=== PATIENT | female | born 1965 | race Caucasian/White ===

== ENCOUNTER → 2016-05-05 | Outpatient (CLI) | payer OTHER ==
[~2016-05-05] MED LIST: ADVAIR 500-501 EACH INH; ATIVAN1 MG PO; COLACE 100 MG100 MG PO; COLACE100 MG PO; DUCOLAX; DULCOLAX5 MG PO; HYDROCODON-ACE1 EAC1; HYDROCODON-ACE1 EAC5 PO; HYDROCODONE-APA1 TA1 PO; IBUPROFEN 800800 M1 PO; LEVOTHROID175 MCG; LEVOTHYROXINE 0.15MG PO; LITHIUM CARBON300 M3 PO; METHOCARBAMOL500 M2 PO; NEURONTIN 300300 M1 PO; NEXIUM20 M1; NEXIUM40 MG PO; NORCO 5-325 TA1 EACH PO; NYSTATIN 1100000 U/M PO; PERCOCET PO; RISPERDAL 1 MG T1 MG PO; ROBAXIN 750 MG750 M1 PO; TRAMADOL 50 MG50 MG PO; VENTOLIN HFA 1818 GM INH; XOPENEX0.63 MG/3 IH; ZPAK PO
== END ==
LOC: ULTRA 04-30 11:52
DX: D25.9 Leiomyoma of uterus, unspecified (principal); R10.2 Pelvic and perineal pain; R10.9 Unspecified abdominal pain

== ENCOUNTER → 2016-10-12 | Outpatient (CLI) | payer OTHER | LOC: RAD 10:46 | DX: M47.896 Other spondylosis, lumbar region (principal); M17.12 Unilateral primary osteoarthritis, left knee; M25.552 Pain in left hip ==

== ENCOUNTER 2016-10-18 16:07 | Inpatient (IN) | payer OTHER ==
[2016-10-18] VITALS (9 sets, daily range): BP systolic 140–159; BP diastolic 86–125
[~2016-10-18] VITALS: Ht 177.8 cm; Wt 114.9 kg
--- NOTE | ~2016-10-18 | EKG ---
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: ERA : 1965 Requested By: Sara Pena Order Number: [id number] MD: Chemo Morgan Measurements Intervals [place] Rate: 63 P: 45 NM: 294 QRS: 11 QRSD: 151 T: -4 QT: 427 QTc: 438 Interpretive Statements Second degree AV block, Mobitz I Incomplete right bundle branch block Compared to ECG 07/03/2012 10:14:41 Second-degree AV block, Mobitz type I (Wenckebach) now present Electronically Signed On 10-19-2016 8:51:23 CDT by Chemo Morgan [email or web address] <ELECTRONICALLY SIGNED> By: Chemo Morgan MD, [facility] 10/19/16 0851 1654 1654 Chemo Morgan MD, [facility] /EPI
--- NOTE | ~2016-10-18 | EKG ---
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 : 1965 Requested By: Román Boyle Order Number: [id number] MD: Khoi Madrigal Measurements Intervals [place] Rate: 72 P: 33 CO: 204 QRS: -6 QRSD: 110 T: 25 QT: 392 QTc: 430 Interpretive Statements Sinus rhythm Borderline prolonged CO interval Abnormal R-wave progression, early transition Borderline T abnormalities, anterior leads Baseline wander in lead(s) V2 Compared to ECG 10/18/2016 16:54:24 T-wave abnormality now present Second-degree AV block, Mobitz type I (Wenckebach) no longer present Incomplete right bundle-branch block no longer present Electronically Signed On 10-20-2016 13:20:23 CDT by Khoi Madrigal [email or web address] <ELECTRONICALLY SIGNED> By: Khoi Madrigal MD 10/20/16 1320 0651 0651 Khoi Madrigal MD /EPI
--- NOTE | ~2016-10-18 | 2DMMODE ---
[facility] [address] [place] [address] 2 D/M-MODE ECHOCARDIOGRAM Name: NETTIE FROST BRULE Room #: 209-P [facility] IN ..#: [id number] Admission: 10/18/16 Attend Phys: Peter Lee, Discharge: 10/20/16 Date of : 67 Date of Service: 10/19/16 0000 Report #: [id number] THIS REPORT FOR: //name// APPROVED REPORT Study performed: 10/18/2016 22:27:47 EXAM: Comprehensive 2D, Doppler, and color-flow Echocardiogram Patient Location: Bedside Room #: 243 Status: on-call Other Information Study Quality: Good Indications Bradycardia 2D Dimensions LVEF(%): 60.45 (>50%) IVSd: 12.43 (7-11mm) LVOT Diam: 20.00 (18-24mm) LVDd: 49.92 mm PWd: 12.04 (7-11mm) Ascending Ao: 31.59 (22-36mm) LVDs: 33.75 (25-40mm) Aortic Root: 29.41 mm Jones's LVEF: 60.45 % Volumes Left Atrial Volume (Systole) Single Plane 4CH: 27.45 mL Single Plane 2CH: 42.76 mL LA ESV Index: 18.00 mL/m2 Aortic Valve AoV Peak Alfred.: 1.32 m/s AO Peak Gr.: 7.85 mmHg LVOT Max P.24 mmHg LVOT Max V: 0.90 m/s CHOCO Vmax: 2.08 cm2 Mitral Valve E/A Ratio: 1.0 MV Decel. Time: 138.53 ms MV E Max Alfred.: 1.02 m/s MV A Alfred.: 1.03 m/s MV PHT: 40.17 ms [facility] [place] [address] 2 D/M-MODE ECHOCARDIOGRAM Name: NETTIE FROST BRULE Room #: 209-P [facility] IN M.R.#: [id number] Admission: 10/18/16 Attend Phys: Peter Lee, Discharge: 10/20/16 Date of : 67 Date of Service: 10/19/16 0000 Report #: [id number] Pulmonary Valve PV Peak Alfred.: 0.62 m/s PV Peak Gr.: 1.54 mmHg Pulmonary Vein P Vein S: 0.57 m/s P Vein A: 0.31 m/s P Vein D: 0.46 m/s P Vein A Dur.: 62.3 msec P Vein S/D Ratio: 1.24 Tricuspid Valve TR Peak Alfred.: 2.14 m/s RAP Estimate: 5.00 mmHg TR Peak Gr.: 18.31 mmHg PA Pressure: 23.00 mmHg TV Max P.00 mmHg Left Ventricle The left ventricle is normal size. There is normal LV segmental wall motion. Mild concentric left ventricular hypertrophy. Left ventricular systolic function is normal. The left ventricular ejection fraction is within the normal range. LVEF is 55-60%. Transmitral Doppler flow pattern suggests pseudonormalization. Right Ventricle The right ventricle is normal size. The right ventricular systolic function is normal. Atria The left atrium size is normal. The right atrium size is normal. Aortic Valve The aortic valve is normal in structure. No aortic regurgitation is present. There is no aortic valvular stenosis. Mitral Valve The mitral valve is normal in structure. Trace to mild mitral regurgitation. No evidence of mitral valve stenosis. Tricuspid Valve The tricuspid valve is normal in structure. Trace to mild tricuspid regurgitation. Pulmonic Valve The pulmonary valve is normal in structure. There is no pulmonic valvular regurgitation. [facility] [address] [address] 2 D/M-MODE ECHOCARDIOGRAM Name: NETTIE FROST TAMI Room #: 209-P [facility] IN M.R.#: [id number] Admission: 10/18/16 Attend Phys: Peter Lee, Discharge: 10/20/16 Date of : 67 Date of Service: 10/19/16 0000 Report #: [id number] The aortic root is normal in size. IVC is normal in size and collapses with >50% inspiration Pericardium There is no pericardial effusion. <Conclusion> The left ventricle is normal size. Left ventricular systolic function is normal. The left ventricular ejection fraction is within the normal range. The aortic valve is normal in structure. The mitral valve is normal in structure. Trace to mild mitral regurgitation. The pulmonary valve is normal in structure. <ELECTRONICALLY SIGNED> By: Román Boyle MD 10/19/16 0000 0000 0000 Román Boyle MD /INF
[2016-10-18 16:40] LABS: HEMATOCRIT 37.1 % (37.0-47.0); HEMOGLOBIN 12.4 gm/dL (12.0-15.0); MCH 28.2 pg (26.0-34.0); MCHC 33.5 g/dL (28.0-37.0); MCV 84.1 fL (80.0-100.0); RBC 4.41 mil/uL (4.20-5.00); RDW 13.1 % (10.5-14.5); WBC 12.1 thou/uL (4.0-11.0)
[2016-10-18 16:50] LABS: ANION GAP 3 mmol/L (7-16); BUN 12 mg/dL (7-18); CALCIUM 9.7 mg/dL (8.5-10.1); CHLORIDE 110 mmol/L (98-107); CO2 28 mmol/L (21-32); GLUCOSE 106 mg/dL (74-106); POTASSIUM 3.6 mmol/L (3.5-5.1); SODIUM 141 mmol/L (136-145)
[2016-10-18 16:58] LABS: MAGNESIUM 2.3 mg/dL (1.8-2.4); TROPONIN-I < 0.04 ng/mL (<0.04-0.07)
[2016-10-19] VITALS (13 sets, daily range): BP systolic 103–143; BP diastolic 72–111
[2016-10-20] VITALS (7 sets, daily range): BP systolic 115–145; BP diastolic 74–95
== END 2016-10-20 17:30 | disposition home or self-care (01) | DRG 310 ==
LOC: ER 16:07 → EROBS 17:38 → 2N 17:38 → ICU 17:38 → 2N 18:00 → ICU 18:10 → 2N 10-19 13:48
PROVIDERS: Emergency Medicine
DX: I44.1 Atrioventricular block, second degree (principal); R00.1 Bradycardia, unspecified; M54.9 Dorsalgia, unspecified; M25.559 Pain in unspecified hip; E03.9 Hypothyroidism, unspecified; F41.9 Anxiety disorder, unspecified; F31.9 Bipolar disorder, unspecified; E28.2 Polycystic ovarian syndrome; K21.9 Gastro-esophageal reflux disease without esophagitis; J45.909 Unspecified asthma, uncomplicated; Z88.6 Allergy status to analgesic agent; Z88.2 Allergy status to sulfonamides; Z88.8 Allergy status to other drugs, medicaments and biological substances; Z88.1 Allergy status to other antibiotic agents; Z91.040 Latex allergy status; Z79.899 Other long term (current) drug therapy
CPT/HCPCS: 10078; 10081

== ENCOUNTER 2016-11-12 15:59 | Inpatient (IN) | payer OTHER ==
[~2016-11-12] VITALS: Ht 177.8 cm; Wt 114.1 kg
[2016-11-12 16:26] VITALS: BP 136/95
[2016-11-12] MEDS ORDERED: LEVOTHYROXIN0.175 MG PO (16:53)
[2016-11-12] MEDS ORDERED: PROTONIX40 M1 PO (16:55)
[2016-11-12] MEDS ORDERED: AUGMENTIN 875875 MG PO (16:58)
[2016-11-12 17:30] LABS: HEMATOCRIT 35.9 % (37.0-47.0); HEMOGLOBIN 11.9 gm/dL (12.0-15.0); MCHC 33.2 g/dL (28.0-37.0); MCV 84.5 fL (80.0-100.0); RBC 4.25 mil/uL (4.20-5.00); RDW 13.3 % (10.5-14.5); WBC 12.9 thou/uL (4.0-11.0)
[2016-11-12 17:48] LABS: ALBUMIN 3.3 g/dL (3.4-5.0); ALKALINE PHOSPHATASE 79 U/L (46-116); ANION GAP 6 mmol/L (7-16); BUN 15 mg/dL (7-18); CALCIUM 9.3 mg/dL (8.5-10.1); CHLORIDE 108 mmol/L (98-107); CO2 27 mmol/L (21-32); CREATININE 1.1 mg/dL (0.6-1.0); GLUCOSE 93 mg/dL (74-106); MAGNESIUM 2.1 mg/dL (1.8-2.4); POTASSIUM 3.6 mmol/L (3.5-5.1); SGOT 14 U/L (15-37); SGPT 20 U/L (30-65); SODIUM 141 mmol/L (136-145); TOTAL BILIRUBIN 0.1 mg/dL (<0.1-1.0); TOTAL PROTEIN 6.4 g/dL (6.4-8.2); TROPONIN-I < 0.04 ng/mL (<0.04-0.07)
[2016-11-12 19:37] VITALS: BP 136/89
[2016-11-12 23:23] VITALS: BP 148/92
[2016-11-13 04:19] VITALS: BP 123/73
[2016-11-13 07:41] VITALS: BP 127/71
[2016-11-13 11:43] VITALS: BP 132/98
[2016-11-13 15:04] VITALS: BP 133/78
[2016-11-13 19:01] VITALS: BP 133/78
== END 2016-11-13 19:24 | disposition home or self-care (01) | DRG 149 ==
LOC: 4W 15:59
PROVIDERS: Family Medicine
DX: R42 Dizziness and giddiness (principal); H53.2 Diplopia; I45.9 Conduction disorder, unspecified; J45.909 Unspecified asthma, uncomplicated; K21.9 Gastro-esophageal reflux disease without esophagitis; F31.9 Bipolar disorder, unspecified; F41.9 Anxiety disorder, unspecified; D72.829 Elevated white blood cell count, unspecified; Z79.899 Other long term (current) drug therapy; Z88.8 Allergy status to other drugs, medicaments and biological substances; Z88.1 Allergy status to other antibiotic agents; Z88.6 Allergy status to analgesic agent; Z88.2 Allergy status to sulfonamides; Z91.040 Latex allergy status; Z95.0 Presence of cardiac pacemaker
CPT/HCPCS: 10045

== ENCOUNTER → 2017-02-08 | Outpatient (CLI) | payer OTHER ==
[~2017-02-08] VITALS: Ht 175.3 cm; Wt 116.1 kg
[~2017-02-08] MED LIST changes: +AUGMENTIN 875875 MG PO; +COZAAR 50 MG TA50 M2 PO; +ELIQUIS5 MG PO; +FLECAINIDE ACET50 M1 PO; -HYDROCODON-ACE1 EAC5 PO; +HYDROCODON-ACE1 EAC8 PO; +IBUPROFEN 600600 M1 PO; +LANSOPRAZOLE30 MG PO; +LEVOXYL150 MCG PO; -LITHIUM CARBON300 M3 PO; +LITHIUM CARBON450 MG PO; +LOPRESSOR25 PO; +PROTONIX40 M1 PO
--- NOTE | ~2017-02-08 | HPC ---
[facility] [address] [place] [address] PAIN MANAGEMENT CONSULTATION Name: NETTIE FROST Room #: REG [facility]..#: [id number] Admission: 02/08/17 Attend Phys: Wei Quinteros MD Discharge: Date of : 67 Report #: [id number] THIS REPORT FOR: //name// CC: Peter Quinteros DATE OF SERVICE: 02/08/2017 CHIEF COMPLAINT: Low back pain with radiation into the left leg. 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. She is here today complaining of pain that is in her left side and radiates down the left lower extremity, all the way to the calf and foot. She has had previous diagnosis of sciatica and has received epidural injections for that in the past. Recently with lifting, she has had some increasing pain which she scores anywhere between 6 on a good day and 10 on a bad day; it is constant, aching, sharp and stabbing; begins typically in the hip and radiates down the anterior lateral thigh into the calf and at times to the foot. She has had some recent association with numbness. There is no recent MRI. She has a previous spinal surgery, but it was in the neck; she had an ACDF performed by Dr. Hernandez many years ago. 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 She has had no lumbar surgeries. She has been treated so far with some home exercise and medication. She is here today to discuss further diagnostic and treatment options. MEDICATIONS: Ibuprofen 600 mg q.6 hours p.r.n., tramadol 50 mg q.6 hours, lorazepam 1 mg as needed for anxiety, Tambocor 50 mg b.i.d., Eliquis 5 mg b.i.d. taken for atrial fibrillation, metoprolol 25 mg daily, Cozaar 50 mg daily, lansoprazole 30 mg at bedtime, Levoxyl. She has Robaxin to take q.8 hours for back spasms and hydrocodone 7.5/325 q.6 hours p.r.n., lithium carbonate and Risperdal are taken for bipolar depression. The patient has been on opioids off and on for some time prescribed by Dr. Peter Lee. 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 ALLERGIES: TETRACYCLINE, SULFA AND HALDOL. PAST MEDICAL HISTORY: Hypertension, she was diagnosed just this year with bradycardiac episodes, which she describes as a vasovagal. It sounds like she [facility] [address] [place] [address] PAIN MANAGEMENT CONSULTATION Name: NETTIE FROST TAMI Room #: REG HERMES Alvarez#: [id number] Admission: 02/08/17 Attend Phys: Wei Quinteros MD Discharge: Date of : 67 Report #: [id number] had some sort of sick sinus with second degree heart block and was also intermittently an atrial fibrillation. She was quite symptomatic with these and a pacemaker was placed in 11/2016. She has been on Eliquis since. Currently, doing well, symptoms have improved. 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 She has a history of gastroesophageal reflux disease and peptic ulcer disease. History of bipolar depression, currently under treatment. SOCIAL HISTORY: Denies use of tobacco or alcohol. 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 She is . REVIEW OF SYSTEMS: Completed by the patient and 12-point review was reviewed above for the most part. She has had some shortness of breath and complains of LATEX ALLERGY. Impact of pain scores are very high for enjoyment of life, sleep, 10/10 and also interfering with walking ability, 8/10. PHYSICAL EXAMINATION: She is a very pleasant 51-year-old female. She moves from a sitting to standing position, seems to be uncomfortable with antalgic features. Range of motion of the spine is performed with increasing pain in her back and radiation into the left leg. There is some mild straight leg raising discomfort noted in the sitting and supine position, but this is more to the back and not so much into the leg. There is tenderness across the lumbosacral segment. She has pain in the right and left hip with internal and external rotation. Pain overlying the greater trochanter. Pain radiates into the thigh and into the anterior thigh with localized hyperalgesic tenderness. Sensation is otherwise normal. Deep tendon reflexes are trace at knee and ankle bilaterally. There is no focal weakness noted in the lower extremity other than with hip flexion on the left, which Causes pain and is limiting. She has noticed this also on walking steps at home. IMPRESSION: Low back pain with radiation into the left leg that follows in L3-L4 distribution. She also has pain in the hip with examination that may suggest that there is also some underlying hip arthropathy with distribution of pain following typical radiating pattern for hip arthropathy into the anterior thigh. There is some intermittent pain and swelling of the left knee, which also has been diagnosed with arthritis and arthropathy and she has been followed by Orthopedic Surgery. RECOMMENDATION: 1. She has an MRI scheduled and she is anxious about that. We discussed a manner to get through the MRI and I have given her five 5-mg Valium tablets with some instructions that she can use. 2. Epidural steroid injection for symptomatic relief may be helpful and the MRI [facility] [address] [place] [address] PAIN MANAGEMENT CONSULTATION Name: NETTIE FROST Room #: REG HERMES Alvarez#: [id number] Admission: 02/08/17 Attend Phys: Wei Quinteros MD Discharge: Date of : 67 Report #: [id number] will be helpful in helping us determine where best to place the needle for that injection. She will need to be off her Eliquis for 3 days and she can check with her marketing director to make sure that they are in approval. 3. Physical therapy and continued exercise maybe of value as well and if we can control her pain a little more effectively with the epidural, I would recommend that we begin the therapy at that time. Followup visit planned after MRI for epidural steroid injection, will seek preauthorization. By: 1531 0047 Wei Quinteros MD /nt
[2017-02-08 11:28] VITALS: BP 121/85
== END | disposition home or self-care (01) ==
LOC: PAIN 12-25 08:55
DX: M54.16 Radiculopathy, lumbar region (principal); G89.29 Other chronic pain; M25.552 Pain in left hip; M25.562 Pain in left knee; I10 Essential (primary) hypertension; K21.9 Gastro-esophageal reflux disease without esophagitis; K27.9 Peptic ulcer, site unspecified, unspecified as acute or chronic, without hemorrhage or perforation; F31.9 Bipolar disorder, unspecified; I48.91 Unspecified atrial fibrillation; Z88.2 Allergy status to sulfonamides; Z90.89 Acquired absence of other organs; Z88.6 Allergy status to analgesic agent; Z95.0 Presence of cardiac pacemaker; Z91.040 Latex allergy status; Z88.1 Allergy status to other antibiotic agents; Z88.8 Allergy status to other drugs, medicaments and biological substances; Z79.899 Other long term (current) drug therapy

== ENCOUNTER → 2017-03-29 | Outpatient (CLI) | payer OTHER ==
[~2017-03-29] VITALS: Ht 177.8 cm; Wt 119.2 kg
--- NOTE | ~2017-03-29 | HPC ---
[facility] [place] [place] [address] PAIN MANAGEMENT CONSULTATION Name: NETTIE FROST Room #: REG [facility] Katy.#: [id number] Admission: 03/29/17 Attend Phys: Wei Quinteros MD Discharge: Date of : 67 Report #: [id number] THIS REPORT FOR: //name// CC: Peter Quinteros DATE OF SERVICE: 03/29/2017 Followup visit for low back pain with radiation into the left trochanter. HISTORY OF PRESENT ILLNESS: The patient is in the pain clinic today for a 20-minute followup visit followed by an injection. Today, we tried to assess her pain. She has pain in the difficult area to evaluate, it ____ radiates into her groin and a bit down the anterior aspect of the leg. It follows more of the L3-L4 distribution. Her MRI scan from 03/02/2017 shows absolutely no problem at those levels to suggest radiculopathy. There is, however, a change at L5-S1, but is more on the contralateral side with facet arthropathy at L5-S1 facet and also a synovial cyst there. All symptoms, however, are today on the left and localized around the greater trochanter. MEDICATIONS: Reviewed and reconciled. I do not provide her currently with any medication. Her last prescription from my office was for some MRI-related anxiety with 5 tablets of Valium. PHYSICAL EXAMINATION: She is pleasant. Blood pressure 129/94, follow up 113/82; heart rate is 76; O2 sats 96. She is able to move from sitting to standing position, ambulates with mild antalgic features. Examination of the spine reveals normal alignment. I will say that there is quite exquisite tenderness over the left greater trochanter that causes some radiating pain both anterior and posteriorly in her usual distribution. Straight leg raising is negative for radiculopathy this time. Sensation and strength are intact. IMPRESSION: By exam today, my feeling is that this is trochanteric bursitis. It could be perhaps right hip arthritis, although x-ray is certainly ____. RECOMMENDATION: Trochanteric bursa injection. PROCEDURE: She was taken to the block area, placed in the right lateral decubitus position, skin was prepped over the left trochanter. A 25-gauge, 3.5-inch needle was used to infiltrate a total of 7 mL of 0.25% bupivacaine mixed with 40 mg triamcinolone in and around the bursa using bone as a landmark. Needle was removed. She tolerated the procedure well. She was observed for a [address] [address] PAIN MANAGEMENT CONSULTATION Name: NETTIE FROST TAMI Room #: REG HERM[facility] Burns.#: [id number] Admission: 03/29/17 Attend Phys: Wei Quinteros MD Discharge: Date of : 67 Report #: [id number] short time and discharged from the recovery room with a followup in 1 month. Her pain score at discharge was 2, reduction from 4 on admission. By: 1412 2033 Wei Quinteros MD /memo
[2017-03-29 10:10] VITALS: BP 129/76
== END | disposition home or self-care (01) ==
LOC: PAIN 07:19
DX: M70.61 Trochanteric bursitis, right hip (principal); G89.29 Other chronic pain; Z88.2 Allergy status to sulfonamides; Z88.6 Allergy status to analgesic agent; Z88.8 Allergy status to other drugs, medicaments and biological substances; Z91.040 Latex allergy status; Z88.1 Allergy status to other antibiotic agents; Z79.891 Long term (current) use of opiate analgesic; Z79.899 Other long term (current) drug therapy

== ENCOUNTER → 2017-07-12 | Outpatient (CLI) | payer OTHER ==
[~2017-07-12] MED LIST changes: +NORCO 10-325 T1 EACH PO
== END ==
LOC: RAD 14:45
DX: Z12.31 Encounter for screening mammogram for malignant neoplasm of breast (principal)

== ENCOUNTER 2017-11-18 08:46 | Emergency (ER) | payer OTHER ==
[~2017-11-18] VITALS: Ht 177.8 cm; Wt 113.4 kg
[~2017-11-18 08:46] MED LIST changes: -NORCO 10-325 T1 EACH PO
[2017-11-18 09:31] LABS: HEMATOCRIT 36.7 % (37.0-47.0); HEMOGLOBIN 12.1 gm/dL (12.0-15.0); MCH 28.6 pg (26.0-34.0); MCHC 33.1 g/dL (28.0-37.0); MCV 86.4 fL (80.0-100.0); RBC 4.24 mil/uL (4.20-5.00); RDW 13.6 % (10.5-14.5)
[2017-11-18 09:40] LABS: CREATININE 1.3 mg/dL (0.6-1.0); POTASSIUM 3.7 mmol/L (3.5-5.1)
[2017-11-18 09:47] LABS: PROTIME 10.3 Seconds (9.3-11.4)
[2017-11-18] MEDS ORDERED: NORCO 10-325 T1 EACH PO (10:21)
[2017-11-18 10:55] VITALS: BP 91/55
== END 2017-11-18 10:58 | disposition home or self-care (01) ==
LOC: ER 08:46
PROVIDERS: Physician Assistant
DX: R10.9 Unspecified abdominal pain (principal); M25.562 Pain in left knee; M25.561 Pain in right knee; I48.91 Unspecified atrial fibrillation; I10 Essential (primary) hypertension; M19.90 Unspecified osteoarthritis, unspecified site; Z88.1 Allergy status to other antibiotic agents; Z88.5 Allergy status to narcotic agent; Z91.041 Radiographic dye allergy status; Z91.040 Latex allergy status; Z79.01 Long term (current) use of anticoagulants; W19.XXXA Unspecified fall, initial encounter; Y93.89 Activity, other specified; Y92.89 Other specified places as the place of occurrence of the external cause; Y99.8 Other external cause status

== ENCOUNTER → 2018-03-29 | Outpatient (CLI) | payer OTHER ==
[~2018-03-29] MED LIST changes: +NORCO 10-325 T1 EACH PO
== END ==
LOC: ULTRA 09:34
DX: R10.11 Right upper quadrant pain (principal); R10.84 Generalized abdominal pain

== ENCOUNTER → 2018-04-11 | Outpatient (CLI) | payer OTHER | LOC: CAT 14:16 | DX: K43.9 Ventral hernia without obstruction or gangrene (principal); I70.0 Atherosclerosis of aorta; M48.061 Spinal stenosis, lumbar region without neurogenic claudication ==

== ENCOUNTER → 2018-04-22 | Outpatient (CLI) | payer OTHER | LOC: NUC 10:14 | DX: R10.11 Right upper quadrant pain (principal) ==

== ENCOUNTER 2018-05-07 09:42 | Emergency (ER) | payer OTHER ==
[~2018-05-07] VITALS: Ht 177.8 cm; Wt 113.4 kg
[2018-05-07 10:28] LABS: APTT 27.5 Seconds (24.5-32.8); PROTIME 10.1 Seconds (9.3-11.4)
[2018-05-07 11:42] VITALS: BP 133/91
[2018-05-07 11:44] LABS: AMYLASE 48 U/L (25-115); LIPASE 93 U/L (73-393)
[2018-05-08 00:10] LABS: GLYCOHEMOGLOBIN (HGB A1C) 5.5 % (4.8-5.6)
== END 2018-05-07 11:45 | disposition home or self-care (01) ==
LOC: ER 09:42
PROVIDERS: Emergency Medicine
DX: S09.8XXA Other specified injuries of head, initial encounter (principal); S13.9XXA Sprain of joints and ligaments of unspecified parts of neck, initial encounter; M25.562 Pain in left knee; M25.551 Pain in right hip; Z88.1 Allergy status to other antibiotic agents; Z88.2 Allergy status to sulfonamides; Z88.5 Allergy status to narcotic agent; Z91.040 Latex allergy status; Z91.041 Radiographic dye allergy status; W18.39XA Other fall on same level, initial encounter; Y93.89 Activity, other specified; Y92.89 Other specified places as the place of occurrence of the external cause; Y99.8 Other external cause status

== ENCOUNTER → 2018-05-18 | Outpatient (CLI) | payer OTHER ==
[~2018-05-18] VITALS: Ht 177.8 cm; Wt 113.4 kg
[~2018-05-18] MED LIST changes: +ACCUNEB SO1.25 MG/1 INH; +GABAPENTIN 100100 MG PO; +LOSARTAN POTASS50 MG PO; +MS CONTIN15 MG PO
--- NOTE | 2018-05-19 16:06 | PATH ---
[facility] [place] [address] PATHOLOGY RPT PROCEDURE Name: RENA FROST TAMI Room #: REG HERMES Alvarez#: [id number] Admission: 05/18/18 Date of : 67 Discharge: Report #: [id number] Path Case #: [id number] [facility] Accession Number: [id number] . 01 Material submitted: . PART A: BX GASTRITIS R/O H-PYLORI PART B: BX ILEUM R/O MICROSCOPIC CAUSE DIARRHEA PART C: BX ASCENDING COLON R/O MICROSCOPIC CAUSE DIAHRRHEA . 01 Clinical history: . Pre-OP DX: Reflux, screening, diarrhea Post-OP DX: Gastric inflammation . 02 Diagnosis: A. Gastric mucosa, gastritis rule out H. pylori, endoscopic biopsy: - Mild reactive gastropathy. - Negative for intestinal metaplasia or atrophy. - Negative for Helicobacter pylori (properly controlled immunohistochemical stain performed). . B. Small bowel mucosa, ileum, endoscopic biopsy: - No diagnostic abnormalities present. - Peyer's patches. - Negative for villous blunting or increase in intraepithelial lymphocytes. . C. Large intestinal mucosa, ascending colon, endoscopic biopsy: - Nonspecific reactive hyperplastic changes and mild apoptosis. - Negative for active cryptitis. - Negative for microscopic colitis. - Negative for dysplasia or malignancy. . (IUV:equity manager; 05/19/2018) MBR/05/19/2018 . 02 Comment: Sections of colon biopsy tissues show crypts at regular intervals. There is a mild increase in the cellularity of lamina propria with a few eosinophils amongst the lymphocytes as well as plasma cells. Cryptitis or crypt abscess formation is not seen. Increase in intraepithelial lymphocytes is not present. There are no viral inclusions or granulomas or parasitic organisms. The collagen layer underneath the epithelium is not thickened. There is no distortion in crypt architecture as well. There is no dysplasia present. Changes are non-specific and maybe related to bowel preparation or a resolved episode of colitis. Please correlate clinically. . (IUV:equity manager; 05/19/2018) [address] [address] PATHOLOGY RPT PROCEDURE Name: RENA FROST Room #: REG [facility]MES Alvarez#: [id number] Admission: 05/18/18 Date of : 67 Discharge: Report #: [id number] Path Case #: [id number] . 02 Electronically signed: . Caitlyn Gardner MD, Pathologist NPI- [id number] . 01 Gross description: . A. Received in formalin labeled "Rena Frost, BX gastritis, rule out H. pylori," is a single segment of atkinson soft tissue measuring 0.6 cm in maximum dimension. The specimen is entirely submitted in cassette A1. . B. Received in formalin labeled "Rena Frost, BX ileum, rule out microscopic cause of diarrhea," are 3 segments of atkinson soft tissue measuring 0.9 x 0.2 x 0.1 cm in aggregate dimensions and ranging from 0.1 to 0.4 cm in maximum dimension. The specimen is submitted entirely in cassette B1. . C. Received in formalin labeled "Rena Frost, BX of ascending colon, rule out microscopic cause of diarrhea," are 2 segments of atkinson soft tissue measuring 0.7 x 0.2 x 0.2 cm in aggregate dimensions and ranging from 0.3 to 0.4 cm in maximum dimension. The specimen is submitted entirely in cassette C1. (TSD; 05/18/2018) TOB/TOB . 02 Pathologist provided ICD-10: K31.9, K21.9, Z12.11, R19.7 . 02 CPT . 522065, 841795, 932256, J41387 Specimen Comment: A courtesy copy of this report has been sent to Specimen Comment: [phone], , . Specimen Comment: Report sent to ,DR HAZEL / DR ABEL Performed at: [address] [facility], [place], [place] [id number] MD Henri Alvarez MD Phone: [phone] Performed at: [address] [facility] [address] [id number] MD Caitlyn Gardner MD Phone: [phone]
== END | disposition home or self-care (01) ==
LOC: GI 10:42
DX: K31.9 Disease of stomach and duodenum, unspecified (principal); K31.7 Polyp of stomach and duodenum; K64.4 Residual hemorrhoidal skin tags; K21.9 Gastro-esophageal reflux disease without esophagitis; R10.13 Epigastric pain; J45.909 Unspecified asthma, uncomplicated; F31.9 Bipolar disorder, unspecified; F41.9 Anxiety disorder, unspecified; Z87.891 Personal history of nicotine dependence; I25.2 Old myocardial infarction; Z95.0 Presence of cardiac pacemaker; Z87.19 Personal history of other diseases of the digestive system; Z91.040 Latex allergy status; Z98.890 Other specified postprocedural states; Z79.899 Other long term (current) drug therapy; Z91.041 Radiographic dye allergy status; Z88.2 Allergy status to sulfonamides; Z88.6 Allergy status to analgesic agent; Z79.01 Long term (current) use of anticoagulants
CPT/HCPCS: 62110; 62900

== ENCOUNTER → 2018-08-18 | Outpatient (CLI) | payer OTHER | LOC: RAD 14:47 | DX: M25.761 Osteophyte, right knee (principal) ==

== ENCOUNTER 2018-09-07 05:33 | Inpatient (IN) | payer OTHER ==
[2018-08-31 10:51] LABS: HEMATOCRIT 38.7 % (37.0-47.0); HEMOGLOBIN 12.8 gm/dL (12.0-15.0); MCH 28.6 pg (26.0-34.0); MCV 86.7 fL (80.0-100.0); RBC 4.47 mil/uL (4.20-5.00); RDW 14.2 % (10.5-14.5); WBC 9.9 thou/uL (4.0-11.0)
[2018-08-31 10:55] LABS: ALBUMIN 3.4 g/dL (3.4-5.0); CALCIUM 10.6 mg/dL (8.5-10.1); CREATININE 1.1 mg/dL (0.6-1.0); POTASSIUM 4.5 mmol/L (3.5-5.1)
[2018-08-31 10:56] LABS: URINE BILIRUBIN NEGATIVE (Negative); URINE BLOOD NEGATIVE (Negative); URINE CLARITY CLEAR; URINE COLOR YELLOW; URINE GLUCOSE-RANDOM* NEGATIVE (Negative); URINE KETONES NEGATIVE (Negative); URINE LEUKOCYTES-REFLEX NEGATIVE (Negative); URINE NITRITE-REFLEX NEGATIVE (Negative); URINE PROTEIN (DIPSTICK) NEGATIVE (Negative); URINE SPECIFIC GRAVITY <= 1.005 (1.005-1.035); URINE UROBILINOGEN 0.2 E.U./dl (0.2-1.0)
[2018-08-31 11:00] LABS: PROTIME 10.1 Seconds (9.3-11.4)
--- NOTE | 2018-08-31 15:23 | EKG ---
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 : 1965 Requested By: Oracio Ariza Order Number: [id number] MD: Chemo Morgan Measurements Intervals [place] Rate: 80 P: HI: 167 QRS: -52 QRSD: 204 T: 76 QT: 471 QTc: 544 Interpretive Statements A-V dual-paced complexes No further analysis attempted due to paced rhythm Artifact in lead(s) II,III,aVL,aVF Compared to ECG 10/20/2016 06:51:32 Ventricular pacing is now present Electronically Signed On 08-31-2018 15:23:04 CDT by Chemo Morgan [email or web address] ��������������������������������������������� <ELECTRONICALLY SIGNED> ���������������������������������������� By: Chemo Morgan MD, [facility] ��������������������������������������������� 08/31/18 1523 1046 1046 Chemo Morgan MD, [facility] /EPI
[2018-09-07] VITALS (7 sets, daily range): BP systolic 96–124; BP diastolic 60–80
[~2018-09-07] VITALS: Ht 177.8 cm; Wt 115.3 kg
[~2018-09-07 05:33] MED LIST changes: +CELEBREX 200 M200 M1 PO; +GLUCOSAMINE &1 EAC1 PO; +IBUPROFEN 200200 M1 PO; +SYNTHROID175 MCG PO
[2018-09-08 06:39] VITALS: BP 97/58
[2018-09-08 06:40] LABS: HEMATOCRIT 37.4 % (37.0-47.0); HEMOGLOBIN 11.8 gm/dL (12.0-15.0); MCH 27.7 pg (26.0-34.0); MCHC 31.7 g/dL (28.0-37.0); MCV 87.5 fL (80.0-100.0); RBC 4.28 mil/uL (4.20-5.00); RDW 14.3 % (10.5-14.5); WBC 19.5 thou/uL (4.0-11.0)
--- NOTE | 2018-09-08 11:00 | O ---
[facility] [place] [address] OPERATIVE REPORT Name: NETTIE FROST Room #: 227-P ADM IN M.R.#: [id number] Admission: 09/07/18 ������������������ Attend Phys: Oracio Ariza MD Discharge: ������������������ Date of : 67 Report #: [id number] THIS REPORT FOR: //name// CC: Peter Ariza DATE OF SERVICE: 09/07/2018 PREOPERATIVE DIAGNOSIS: Left knee osteoarthritis. POSTOPERATIVE DIAGNOSIS: Left knee osteoarthritis. PROCEDURE: Left total knee arthroplasty using Navio robotic assistance. SURGEON: Oracio Ariza MD PROCESSING TECHNOLOGIST: Cheryl Miguel PA-C. INDICATION FOR PROCESSING TECHNOLOGIST: Throughout the case, extensive retraction and manipulation of the knee was required. This was afforded to me by my assistant professor of art. ANESTHESIA: LMA with an adductor canal block. IMPLANTS: [employer] size 5 Oxinium Journey II BCS posterior stabilized femur, a size 3 tibia, a size 10 polyethylene and a size 32 patella. TOURNIQUET TIME: 61 minutes. ESTIMATED BLOOD LOSS: 25 mL. COMPLICATIONS: None. SPECIMENS: None. CONDITION UPON LEAVING THE OPERATING ROOM: Stable. INDICATIONS FOR PROCEDURE: The patient is a 52-year-old female with left knee osteoarthritis who failed conservative measures for this and after discussion with her, she elected for left total knee arthroplasty. DESCRIPTION OF PROCEDURE: Risks, benefits, alternatives and complications were discussed in detail with the patient including but not limited to risk of anesthesia, risk of damage to nerves, arteries and blood vessels, risk for infection and bleeding, risk for continued knee pain, need for reoperation. Informed consent was obtained from the patient. The left knee was appropriately marked in the preoperative holding area. IV clindamycin was given for [address] [address] OPERATIVE REPORT Name: NETTIE FROST TAMI Room #: 227-P [facility] IN M.R.#: [id number] Admission: 09/07/18 ������������������ Attend Phys: Oracio Ariza MD Discharge: ������������������ Date of : 67 Report #: [id number] preoperative antibiotics. She was brought to the operating room and placed in the supine position on operating room table. LMA anesthesia was induced without complication. Tourniquet was placed on the left thigh. Left lower extremity was prepped and draped in normal sterile fashion. Timeout was performed properly identifying the patient and procedure as well as the instrumentation and implants. All in the operating room were in agreement. Left lower extremity was exsanguinated, tourniquet was inflated. Tourniquet time was 61 minutes. Standard midline approach to the knee was made with a 10 blade through the skin. Dissection was taken down sharply to the fascia and deep flaps were developed medially and laterally. A fresh 10 blade was used to make a medial parapatellar arthrotomy and the knee was inspected. There was grade 3-4 arthritic change of the medial femoral condyle as well as the patella. It was decided to proceed with total knee arthroplasty. Reference pins were placed in the femur and the tibia and the knee was digitally mapped using the mobilePeople robotic system. Intraoperative plan was made and we sized a size 5 femur, a size 3 tibia with a size 10 polyethylene. After acceptance of the intraoperative plan, the distal femoral cut was made with a Navio bur. The size 5 femoral cutting block was then pinned in place and the chamfer cuts were made on the femur. Attention was turned to the tibia. The remainder of the menisci was removed with Bovie cautery and the tibial resection guide was pinned in place using the mobilePeople system for placement. Tibial resection was made. Flexion and extension gaps were then checked and found to have good balance in flexion and extension both medially and laterally. The tibia was sized, found to be a size 3. A size 3 tibial trial was placed, pinned and punched. A size 5 femoral trial was placed and the box cut was made. A size 9 and then a size 10 polyethylene were then trialed and found to have the best fit with 1 mm of laxity medial and lateral throughout range of motion with the size 10 polyethylene. A 9 mm was taken off the posterior surface of the patella and a size 32 patellar trial button was placed. Knee was taken through range of motion, found to be stable, found to have good patellar tracking and balance. Trial components were removed. Bony ends were thoroughly irrigated with normal saline. A final size 3 tibia, a size 5 Journey II BCS Oxinium femur and a size 32 patella were cemented in place using standard cementation techniques. While the cement cured, a periarticular injection was injected consisting of morphine, ropivacaine, epinephrine and Toradol. After the cement cured, tourniquet was deflated. Hemostasis was obtained with Bovie cautery. A final size 10 polyethylene was placed. A gram of vancomycin was placed deep in the joint. Fascia was closed with 0 Vicryl, skin was closed with 2-0 Vicryl and 3-0 Monocryl. Dermabond and a TAIMKA dressing was applied. The patient tolerated this procedure well and went to recovery room under care of anesthesia postoperatively. ��������������������������������������������� <ELECTRONICALLY SIGNED> ���������������������������������������� By: Oracio Ariza MD ��������������������������������������������� 09/08/18 1100 1635 1714 Oracio Ariza MD /nt
[2018-09-08 15:21] VITALS: BP 112/62
[2018-09-08 21:05] VITALS: BP 127/76
[2018-09-09 05:15] VITALS: BP 111/65
[2018-09-09 05:19] LABS: HEMATOCRIT 39.8 % (37.0-47.0); HEMOGLOBIN 12.8 gm/dL (12.0-15.0); MCH 27.9 pg (26.0-34.0); MCHC 32.3 g/dL (28.0-37.0); MCV 86.5 fL (80.0-100.0); RBC 4.6 mil/uL (4.20-5.00); RDW 14.2 % (10.5-14.5); WBC 12.9 thou/uL (4.0-11.0)
[2018-09-09 09:07] VITALS: BP 139/89
[2018-09-09] MEDS ORDERED: PERCOCET 10-321 EACH PO (13:28)
[2018-09-09 20:26] VITALS: BP 123/75
[2018-09-10 03:23] VITALS: BP 107/70
[2018-09-10 08:00] VITALS: BP 118/76
== END 2018-09-10 15:00 | DRG 470 ==
LOC: TBA 05:33 → PRE 05:46 → SICU 19:16 → 4W 09-08 14:20
PROVIDERS: ADMIT Orthopaedic Surgery
PROC: 8E0Y0CZ Robotic Assisted Procedure of Lower Extremity, Open Approach (ICD-10-PCS; principal; 2018-09-07)
PROC: 0SRD069 Replacement of Left Knee Joint with Oxidized Zirconium on Polyethylene Synthetic Substitute, Cemented, Open Approach (ICD-10-PCS; principal; 2018-09-07)
DX: M17.12 Unilateral primary osteoarthritis, left knee (principal); G47.33 Obstructive sleep apnea (adult) (pediatric); E11.9 Type 2 diabetes mellitus without complications; I10 Essential (primary) hypertension; J45.909 Unspecified asthma, uncomplicated; K21.9 Gastro-esophageal reflux disease without esophagitis; Z95.0 Presence of cardiac pacemaker; Z98.891 History of uterine scar from previous surgery; Z90.710 Acquired absence of both cervix and uterus; Z98.1 Arthrodesis status; Z79.899 Other long term (current) drug therapy; Z88.2 Allergy status to sulfonamides; Z88.8 Allergy status to other drugs, medicaments and biological substances; Z91.041 Radiographic dye allergy status; Z91.040 Latex allergy status
CPT/HCPCS: 10047; 15002; 50010; 50101; 50415; 50954; 51130; 51225; 53000; 53078; 54118; 55372; 56527; 56528; 57095; 57103; 57110; 57127; 62110; 62900; 70005

== ENCOUNTER 2018-11-03 23:12 | Inpatient (IN) | payer OTHER ==
[~2018-11-03] VITALS: Ht 177.8 cm; Wt 114.8 kg
--- NOTE | ~2018-11-03 | HC ---
[facility] [place] [address] CONSULTATION Name: NETTIE FROST TAMI Room #: 207-P [facility] IN M.R.#: [id number] Admission: 11/04/18 ������������������ Attend Phys: Peter Lee MD Discharge: ������������������ Date of : 67 Report #: [id number] THIS REPORT FOR: //name// CC: Peter Lee DATE OF SERVICE: 11/04/2018 REASON FOR CONSULTATION: Increased lithium level. REASON FOR PRESENTATION: Abnormal lithium level. HISTORY OF PRESENT ILLNESS: A 53-year-old with bipolar disorder who was taking lithium, presented to the Emergency Room after she reported to her primary care physician, Dr. Peter Lee and was found to have a lithium level of 1.9. She has been taking lithium for the last 20 years. The patient had total knee replacement on 09/07/2018 and she started taking daily Celebrex, ibuprofen. She did report to tremors and twitching. She had difficulty with oral intake and had some nausea for the last few days. No changes in urinary habit. She did have some unsteadiness. No syncopal episodes. No palpitation. She has close to normal kidney function. ALLERGIES: CONTRAST, SULFA. MEDICATIONS: 1. Metoprolol. 2. Gabapentin. 3. La Dolores. 4. Lorazepam. 5. Eliquis. 6. Flecainide. 7. Levothyroxine. 8. Losartan. PAST MEDICAL HISTORY: 1. Bipolar disorder. 2. Anxiety. 3. Obstructive sleep apnea. 4. Hypothyroidism. 5. Post-thyroidectomy. 6. Total knee replacement. 7. Status post pacemaker insertion. 8. Heart block. 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 No drug or alcohol abuse. She is a former smoker. [facility] [address] [place] [address] CONSULTATION Name: NETTIE FROST TAMI Room #: 207-[facility] IN M.R.#: [id number] Admission: 11/04/18 ������������������ Attend Phys: Peter Lee MD Discharge: ������������������ Date of : 67 Report #: [id number] REVIEW OF SYSTEMS: GENERAL: Significant for weakness and lethargy. CARDIOVASCULAR: No chest pain or palpitation. PULMONARY: No cough or hemoptysis. GASTROINTESTINAL: Significant nausea and vomiting. GENITOURINARY: No frequency, no urgency. MUSCULOSKELETAL: Left knee pain. SKIN: No rash or ulcerations. NEUROLOGIC: Significant for tremor and dizziness. PHYSICAL EXAMINATION: GENERAL: She is alert, oriented, in no apparent distress. VITAL SIGNS: Blood pressure is 107/70, temperature is 36.6. HEAD AND NECK: No jugular venous distention, no bruit, no thyromegaly. CHEST: No crackles. CARDIOVASCULAR: Regular with no rub detected. ABDOMEN: Soft, nontender with no hepatosplenomegaly. EXTREMITIES: Lower extremities, recent scar over the left lower extremity. No edema. LABORATORY DATA: Laboratory values reviewed. Her lithium level is 1.2. Creatinine is 1.2. Calcium is elevated at 10.7. ASSESSMENT, IMPRESSION, PLAN: 1. Suspected lithium overdose. 2. Bipolar disorder. 3. Heart block, post pacemaker. 4. Hypothyroidism. 5. Hypertension. 6. La Dolores level is within range. 7. Continue IV fluid. 8. One time Lasix. 9. Investigate the source for her tremor or twitching. Available for any issues down the road; however, I doubt that she has any symptoms of lithium toxicity. ��������������������������������������������� ���������������������������������������� By: ��������������������������������������������� 0809 0851 Marleni Smith MD /nt
[~2018-11-03 23:12] MED LIST changes: +PERCOCET 10-321 EACH PO
[2018-11-03 23:25] VITALS: BP 144/91
[2018-11-04] VITALS (8 sets, daily range): BP systolic 107–180; BP diastolic 70–103
[2018-11-04 00:02] LABS: CALCIUM 10.7 mg/dL (8.5-10.1); CREATININE 1.2 mg/dL (0.6-1.0); POTASSIUM 3.5 mmol/L (3.5-5.1)
--- NOTE | 2018-11-04 04:58 | NUR ---
ADMIT: ON UNIT AT 0240 FOR LITHIUM TOXICITY PT ALERT ORIENTED. REPORTS PAIN /. RECEIVED SOME PAIN MEDICATIONS FROM ED. VITALS STABLE. PATIENT GET TACHY WITH ACTIVITIES AND SHAKINGNESS WHEN SHE GET UPS. HIGH FALL RISK. FALL RISK IMPLEMENTED. PT ALSO HAS ALLERGY. PRECAUTION INMPLEMENTED. NO FURTHER DISTRESS. WILL CONTINUE TO FOLLOW POC.
--- NOTE | 2018-11-04 14:50 | NUR ---
ASSUMED CARE AT 0700, SHIFT ASSESSMENT DONE, MEDS GIVEN, VSS. REPORTED PAIN, PRN PAIN MEDS GIVEN. UP AD ANSHU, RECEIVING IV FLUIDS, GIVEN ONE DOSE OF LASIX. AV PACED ON TELE. WILL CONTINUE TO ASSESS AND ASSIST WITH ADLs NEEDED.
--- NOTE | 2018-11-05 04:54 | NUR ---
PT ALERT AND ORIENTED. RATES LEFT KNEE PAIN AT 2/10. VITALS STABLE. PT LITHIUM TOXICITY CURRENTLY NORMAL. NOTICED DECREASED TREMORS/ SHAKINESS. PT REPORTS ONE EPISODE OF MILD TREMORS OVER NIGHT/. NO FURTHER C/O REPORTED. PROTONIX RESTARTED IN SUBSTITUTE TO PREVACID. WILL CONTINUE TO FOLLOW POC
[2018-11-05 05:15] VITALS: BP 123/88
[2018-11-05 07:33] LABS: ALBUMIN 3.1 g/dL (3.4-5.0); CREATININE 0.9 mg/dL (0.6-1.0); PHOSPHORUS 3.4 mg/dL (2.5-4.9); POTASSIUM 4.3 mmol/L (3.5-5.1)
[2018-11-05 09:42] VITALS: BP 123/88
--- NOTE | 2018-11-05 11:14 | NUR ---
PATIENT CARE ASSUMED AT 700, ASSESSMENT CHARTED, VSS, ALERT AND ORIENTED, PATIENT DISCHARGED TO HOME, GIVEN DISCHARGE INSTRUCTIONS, STATED UNDERSTANDING. SALINE LOCK DC'D. ESCORTED PATIENT TO CAR WHERE WAITING.
== END 2018-11-05 10:12 | disposition home or self-care (01) | DRG 684 ==
LOC: ER 23:12 → EROBS 11-04 01:07 → 2N 11-04 01:07
PROVIDERS: Emergency Medicine; Hospitalist; ADMIT Family Medicine
DX: N17.9 Acute kidney failure, unspecified (principal); I10 Essential (primary) hypertension; K21.9 Gastro-esophageal reflux disease without esophagitis; E89.0 Postprocedural hypothyroidism; F41.9 Anxiety disorder, unspecified; F31.9 Bipolar disorder, unspecified; J45.909 Unspecified asthma, uncomplicated; R25.1 Tremor, unspecified; G47.33 Obstructive sleep apnea (adult) (pediatric); Z96.652 Presence of left artificial knee joint; T43.595A Adverse effect of other antipsychotics and neuroleptics, initial encounter; Y92.89 Other specified places as the place of occurrence of the external cause; Z98.891 History of uterine scar from previous surgery; Z95.0 Presence of cardiac pacemaker; Z98.1 Arthrodesis status; Z79.01 Long term (current) use of anticoagulants; Z79.899 Other long term (current) drug therapy; Z88.2 Allergy status to sulfonamides; Z88.8 Allergy status to other drugs, medicaments and biological substances; Z91.041 Radiographic dye allergy status; Z91.040 Latex allergy status
CPT/HCPCS: 10081

== ENCOUNTER → 2018-11-18 | Outpatient (CLI) | payer OTHER | LOC: CAT 14:16 | DX: M25.462 Effusion, left knee (principal); Z96.652 Presence of left artificial knee joint ==

== ENCOUNTER → 2019-01-12 | Outpatient (CLI) | payer OTHER ==
[~2019-01-12] VITALS: Ht 177.8 cm; Wt 111.1 kg
[~2019-01-12] MED LIST changes: +ESKALITH CR450 MG PO; +MODAFINIL200 MG PO; +OXYCODONE-ACET1 EAC2 PO
--- NOTE | ~2019-01-12 | HPC ---
[facility] [address] [place] [address] PAIN MANAGEMENT CONSULTATION Name: NETTIE FROST Room #: REG Corinne Burns.#: [id number] Admission: 01/12/19 ������������������ Attend Phys: Wei Quinteros MD Discharge: ������������������ Date of : 67 Report #: [id number] THIS REPORT FOR: //name// CC: MERCEDES Quinteros DATE OF SERVICE: 01/12/2019 HISTORY OF PRESENT ILLNESS: Followup visit for pain, right knee, status post right total knee replacement and low back pain with radiculopathy. 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 Primary pain is in the left knee. She is 2 weeks after her left total knee replacement getting out of the tub, she slipped tore some ligaments and now has an unstable patella. She has followed with Dr. Morgan, who is going to revise the scar within the next couple of weeks. The pain is in her left knee with weightbearing, but in addition, she has pain and numbness into both feet. She has stage 3 renal failure and also takes lithium for bipolar illness. She has been told by Dr. Smith that she cannot take ibuprofen with them simultaneously. She had elevation of creatinine and decrease in her GFR, which was reversed when it was discontinued. At night, she has difficulty sleeping and has pain that is present when she wakes in the morning. After she is up and is able to move around a little bit, her legs began to feel better. She has been working 3 days a week despite all of these problems. She has also been working out, swimming at [employer]. MEDICATIONS: Granite carbonate 450 mg tablets b.i.d., modafinil 200 mg daily at 9 o'clock. She has been taking morphine 15 mg b.i.d. and hydrocodone 10/325 for breakthrough pain. The hydrocodone has an activating effect and she cannot take it at night or it keeps her from sleeping. She has Ativan, but has taken only 4-5 tablets per month and understands that there is an interaction between opioids and benzodiazepines. She never takes them together. Risperidone 1 mg tablet taken at bedtime, Eliquis, metoprolol, flecainide. ALLERGIES: LATEX, SULFA, HALDOL, CODEINE, KEFLEX, AND TETRACYCLINE. PHYSICAL EXAMINATION: VITAL SIGNS: She is 5 feet 10 inches, 245, BMI 35.2, blood pressure 135/98, heart rate 80, respirations 16, O2 sat 97. Pain score 2 at rest. She moves from sitting to standing position, again is mildly antalgic. [facility] [address] [place] [address] PAIN MANAGEMENT CONSULTATION Name: NETTIE FROST TAMI Room #: REG HERMES Alvarez#: [id number] Admission: 01/12/19 ������������������ Attend Phys: Wei Quinteros MD Discharge: ������������������ Date of : 67 Report #: [id number] CHEST: Clear. CARDIAC: Rhythm is regular. BACK: Reveals tenderness across the lumbosacral segment. She has minimal pain with flexion, some pain with extension, which reproduces her back and into her hips and legs. She has mild instability of the left patella. Generalized weakness of the lower extremities. Review of the chart shows that she has had previous injections through the clinic. An epidural injection was performed as far back as 2006. She has also had a greater trochanteric bursa injection in 2017. IMPRESSION: She has an MRI scheduled of her lumbar spine for next week. We will consider an epidural injection after reviewing the results of that test. PLAN: We spent a good deal of time discussing her medication today. I reviewed with her the CDC guidelines, talked about morphine milligram equivalents if she takes both of her morphine and 1 oxycodone at bedtime, 1 hydrocodone during the daytime, she may achieve the benefits of the medications, which seem to have different effect for her. Her MME would be 65. She feels that if she may be able to taper off the morphine that would be excellent and would drop her morphine milligram equivalency from 65-35. She will make efforts to do so. She has hydrocodone available as well as morphine. I have agreed to provide her with a prescription for the oxycodone today and will notify Dr. Lee's office. She was given 30 tablets. Followup visit is planned with Dr. Lee. I will be glad to see her back for interventional therapies. ��������������������������������������������� ���������������������������������������� By: ��������������������������������������������� 1751 0007 Wei Quinteros MD /nt
[2019-01-12 09:18] VITALS: BP 135/98
--- NOTE | 2019-01-12 09:38 | NUR ---
Pain Clinic Assessment: 1. History of Osteoarthritis: KNEES History of Rheumatoid Arthritis: DENIES 2. Height: 5 ft. 10 in. 177.8 cm. Weight: 245.0 lb. oz. 111.132 kg. Patient's BMI: 35.2 3. Vital Signs: BP: 135/98 Pulse: 80 Resp: 16 Temp: 02 Sat: 97 ECG Mon: 4. Pain Intensity: 2 NOW 5. Fall Risk: Dizziness: N Needs help standing or walking: N Fallen in the last 3 months: N Fall risk comments: - 6. Patient on Blood Thinner: ELIIQUIS 7. History of Hypertension: Y 8. Opioid Therapy greater than 6 weeks: Y Opiate Contract Signed: 9. Risk Assessment Tool Provided: 1- LOW 10. Functional Assessment Tool: 11. Recreational Drug Use: Never Drug Type: Tobacco Use: Former Smoker Tobacco Type: Amount or Packs/day: How Many Years: Alcohol Use: No Frequency: Quant:
== END ==
LOC: PAIN 11-07 11:52
DX: M54.16 Radiculopathy, lumbar region (principal); M25.561 Pain in right knee; Z79.899 Other long term (current) drug therapy; Z88.8 Allergy status to other drugs, medicaments and biological substances; Z88.2 Allergy status to sulfonamides; Z91.040 Latex allergy status; Z96.651 Presence of right artificial knee joint

== ENCOUNTER 2019-03-01 12:53 | Emergency (ER) | payer OTHER ==
[~2019-03-01] VITALS: Ht 177.8 cm; Wt 113.4 kg
[2019-03-01 13:23] LABS: ABSOLUTE NEUTROPHILS 6.1 thou/uL (1.4-8.2); BASOPHILS 0.9 % (0.0-2.0); EOSINOPHILS 3.2 % (0.0-3.0); HEMATOCRIT 39.1 % (37.0-47.0); HEMOGLOBIN 12.4 gm/dL (12.0-15.0); LYMPHOCYTES 27.4 % (24.0-44.0); MCH 27.6 pg (26.0-34.0); MCHC 31.8 g/dL (28.0-37.0); MCV 86.8 fL (80.0-100.0); PLATELET COUNT 299 thou/uL (150-400); POLYS 59.5 % (36.0-66.0); RDW 13.8 % (10.5-14.5); WBC 10.3 thou/uL (4.0-11.0)
[2019-03-01 13:28] LABS: CALCIUM 10.5 mg/dL (8.5-10.1); CREATININE 1.1 mg/dL (0.6-1.0); POTASSIUM 3.9 mmol/L (3.5-5.1)
[2019-03-01 13:33] LABS: ALBUMIN 3.5 g/dL (3.4-5.0); TOTAL BILIRUBIN 0.2 mg/dL (<0.1-1.0); TOTAL PROTEIN 6.8 g/dL (6.4-8.2)
[2019-03-01 15:10] VITALS: BP 134/78
--- NOTE | 2019-03-03 12:14 | EKG ---
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: : 1965 Requested By: Waleska Caro Order Number: [id number] MD: Dewayne Teague Measurements Intervals [place] Rate: 81 P: OK: 266 QRS: 79 QRSD: 117 T: 51 QT: 392 QTc: 455 Interpretive Statements Atrial-paced rhythm Nonspecific intraventricular conduction delay Low voltage, precordial leads Nonspecific T abnormalities, anterior leads Compared to ECG 08/31/2018 10:46:33 Intraventricular conduction delay now present Low QRS voltage now present T-wave abnormality now present Electronically Signed On 03-03-2019 12:14:36 MACHINIST APPRENTICE by Dewayne Teague [email or web address] <ELECTRONICALLY SIGNED> By: Dewayne Teague MD 03/03/19 1214 1426 1426 Dewayne Teague MD /SAJI
== END 2019-03-01 15:12 | disposition home or self-care (01) ==
LOC: ER 12:53
PROVIDERS: Physician Assistant
DX: R56.9 Unspecified convulsions (principal); I10 Essential (primary) hypertension; E03.9 Hypothyroidism, unspecified; J45.909 Unspecified asthma, uncomplicated; K21.9 Gastro-esophageal reflux disease without esophagitis; M25.569 Pain in unspecified knee; G47.30 Sleep apnea, unspecified; G89.29 Other chronic pain; F19.90 Other psychoactive substance use, unspecified, uncomplicated; F41.9 Anxiety disorder, unspecified; F31.9 Bipolar disorder, unspecified; Z98.890 Other specified postprocedural states; Z96.653 Presence of artificial knee joint, bilateral; Z91.040 Latex allergy status; Z91.041 Radiographic dye allergy status; Z88.1 Allergy status to other antibiotic agents; Z88.2 Allergy status to sulfonamides; Z88.8 Allergy status to other drugs, medicaments and biological substances

== ENCOUNTER 2019-05-15 05:43 | Day surgery (SDC) | payer OTHER ==
[~2019-05-15] VITALS: Ht 177.8 cm; Wt 112.5 kg
[~2019-05-15 05:43] MED LIST changes: +ALBUTEROL2.5 MG/31 INH; +CELECOXIB200 MG PO; +LEVOXYL75 MCG PO; +LITHIUM CARBON150 MG PO; +PREVACID30 M2 PO; +PROAIR HFA8.5 GM INH; +RISPERDAL2 MG PO; +SYMBICORT80 MCG/4.1 INH; +TOPROL XL100 MG PO; +ZOFRAN4 MG PO
[2019-05-15 07:55] LABS: CALCIUM 10.4 mg/dL (8.5-10.1); POTASSIUM 3.6 mmol/L (3.5-5.1)
[2019-05-15 07:58] LABS: % SATURATION 11 % (20-39); IRON 35 ug/dL (50-170); TIBC 329 ug/dL (250-450)
[2019-05-15 08:01] VITALS: BP 122/84
[2019-05-15 08:02] LABS: ALBUMIN 3.4 g/dL (3.4-5.0); TOTAL BILIRUBIN 0.6 mg/dL (<0.1-1.0); TOTAL PROTEIN 6.5 g/dL (6.4-8.2)
[2019-05-15 09:21] VITALS: BP 122/84
[2019-05-15 22:06] LABS: CALCIUM IONIZED* 6.3 mg/dL (4.5-5.6)
[2019-05-16 15:08] LABS: KAPPA FREE LIGHT CHAINS 23.2 mg/L (3.3-19.4); KAPPA/LAMBDA RATIO 1.27 (0.26-1.65); LAMBDA FREE LIGHT CHAINS 18.3 mg/L (5.7-26.3)
[2019-05-17 12:07] LABS: GLOBULIN TOTAL 2.5 g/dL (2.2-3.9); M-SPIKE Not Observed g/dL (Not Observed)
--- NOTE | 2019-05-17 14:14 | O ---
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 PROCEDURES: Left knee arthroscopy with extensive lysis of adhesions. SURGEON: Oracio Ariza M.D. SIGNAL PROCESSING ENGINEER: Cheryl Miguel PA-C. ANESTHESIA: LMA. TOURNIQUET TIME: 18 minutes. COMPLICATIONS: None. SPECIMENS: None. CONDITION UPON LEAVING THE OPERATING ROOM: Stable. INDICATIONS FOR PROCEDURE: The patient is a 53-year-old female who is approximately a year out from a left total knee arthroplasty. She has had continued anterior knee pain and popping and it was felt that she had developed significant scarring of the tissue surrounding the knee. After discussion with her, she elected for left knee arthroscopy with debridement as needed. DESCRIPTION OF PROCEDURE: Risks, benefits, alternatives, complications were discussed in detail with the patient including but not limited to risk of anesthesia, risk of damage to nerves, arteries, blood vessels, risk for infection, bleeding, risk for continued knee pain, need for reoperation. Informed consent was obtained from the patient. Left knee was appropriately marked in the preoperative holding area. IV clindamycin was given for preoperative antibiotics. She was brought to the operating room and placed in the supine position on the operating room table. LMA anesthesia was induced without complication. Tourniquet was placed on the left thigh. Left lower extremity was prepped and draped in normal sterile fashion. Timeout was performed properly identifying the patient and procedure as well as the instrumentation. All in the operating room were in agreement. Left lower [address] [address] OPERATIVE REPORT Name: SANTOSHNETTIE TAMI Room #: DEP [facility] Kim#: [id number] Admission: 05/15/19 Attend Phys: Oracio Ariza MD Discharge: 05/15/19 Date of : 67 Report #: [id number] extremity was exsanguinated, tourniquet was inflated. Tourniquet time was approximately 18 minutes. Standard anterolateral portal was established with 11 blade through the skin. Arthroscope was introduced into the patellofemoral compartment, diagnostic arthroscopy was undertaken. Patellofemoral compartment was visualized and found to have scarring medial and lateral to the patella. Medial gutter was visualized and found to be without pathology. Medial compartment was visualized and medial portal was established under arthroscopic visualization. There was some scar tissue on the anterior medial capsule. This was debrided with oscillating shaver. Notch was visualized and found to have an intact post for the polyethylene. There was scarring in the posterior patellar fat pad area and this was removed with an oscillating shaver. Lateral compartment was visualized and found to have scarring along the remnant of the lateral meniscus. This was debrided with oscillating shaver. The lateral gutter had more abundant scar tissue. This was also removed with an oscillating shaver. After the scope was placed back in the patellofemoral compartment and the scar tissue along the medial and lateral patellar facets were removed with oscillating shaver. All fluid was allowed to drain from the knee. Knee was injected with 10 mL of 0.5% Marcaine. Incision was closed with 3-0 nylon. Soft dressing of Adaptic, 4 x 4, Webril, Ed wrap were applied. The patient tolerated this procedure well and went to recovery room under care of anesthesia postoperatively. <ELECTRONICALLY SIGNED> By: Oracio Ariza MD 05/17/19 1414 0828 0835 Oracio Ariza MD /nt
== END 2019-05-15 10:05 | disposition home or self-care (01) ==
LOC: OR → TBA 05:45 → OR 10:03
PROVIDERS: Hospitalist; Orthopaedic Surgery
DX: M24.662 Ankylosis, left knee (principal); Z96.652 Presence of left artificial knee joint; M25.562 Pain in left knee; I10 Essential (primary) hypertension; E03.9 Hypothyroidism, unspecified; F31.9 Bipolar disorder, unspecified; K21.9 Gastro-esophageal reflux disease without esophagitis; F41.9 Anxiety disorder, unspecified; J45.909 Unspecified asthma, uncomplicated; Z98.890 Other specified postprocedural states; Z79.899 Other long term (current) drug therapy; Z87.891 Personal history of nicotine dependence; Z95.0 Presence of cardiac pacemaker; Z87.19 Personal history of other diseases of the digestive system; Z91.040 Latex allergy status; Z91.041 Radiographic dye allergy status; Z88.8 Allergy status to other drugs, medicaments and biological substances
CPT/HCPCS: 50101; 50405; 54170; 56526; 57103; 57180; 62110; 62900; 70005

== ENCOUNTER → 2019-06-01 | Outpatient (CLI) | payer OTHER | LOC: MRI 08:12 | DX: M50.221 Other cervical disc displacement at C4-C5 level (principal); M46.87 Other specified inflammatory spondylopathies, lumbosacral region; M51.27 Other intervertebral disc displacement, lumbosacral region; M54.40 Lumbago with sciatica, unspecified side; M48.061 Spinal stenosis, lumbar region without neurogenic claudication; M47.22 Other spondylosis with radiculopathy, cervical region; G89.29 Other chronic pain; Z88.5 Allergy status to narcotic agent; Z91.041 Radiographic dye allergy status; Z88.1 Allergy status to other antibiotic agents; Z88.8 Allergy status to other drugs, medicaments and biological substances; Z98.1 Arthrodesis status ==

== ENCOUNTER → 2019-09-27 | Outpatient (CLI) | payer OTHER | LOC: SJCVCIMAG 08:46 | DX: Z01.810 Encounter for preprocedural cardiovascular examination (principal); I07.1 Rheumatic tricuspid insufficiency; I48.91 Unspecified atrial fibrillation; I47.1 Supraventricular tachycardia; Z95.0 Presence of cardiac pacemaker ==

== ENCOUNTER → 2019-09-28 | Outpatient (CLI) | payer OTHER ==
[~2019-09-28] VITALS: Ht 177.8 cm; Wt 113.4 kg
[2019-09-28 10:10] VITALS: BP 136/89
[2019-09-28 10:44] LABS: HEMATOCRIT 39.1 % (37.0-47.0); HEMOGLOBIN 12.9 gm/dL (12.0-15.0); MCH 27.6 pg (26.0-34.0); MCHC 32.9 g/dL (28.0-37.0); MCV 83.8 fL (80.0-100.0); RBC 4.66 mil/uL (4.20-5.00); RDW 14.2 % (10.5-14.5); WBC 10.1 thou/uL (4.0-11.0)
[2019-09-28 11:02] LABS: ANION GAP < 0 mmol/L (7-16); BUN 11 mg/dL (7-18); CALCIUM 10.2 mg/dL (8.5-10.1); CHLORIDE 106 mmol/L (98-107); CO2 33 mmol/L (21-32); CREATININE 1.1 mg/dL (0.6-1.0); GLUCOSE 92 mg/dL (74-106); POTASSIUM 3.8 mmol/L (3.5-5.1); SODIUM 138 mmol/L (136-145)
--- NOTE | 2019-09-28 13:40 | CATHLAB ---
[facility] [place] [place] [address] INVASIVE PROCEDURE REPORT Name: NETTIE FROST Room #: REG HERMES Alvarez#: [id number] Admission: 09/28/19 Attend Phys: Román Boyle Discharge: Date of : 67 Report #: [id number] THIS REPORT FOR: cc: Peter Lee MD, Neal A. MD Lammoglia, Francisco J. MD ~ APPROVED REPORT Study performed: 09/28/2019 10:33:53 Patient Details Patient Status: Out-Patient Room #: The patient is a 53 year-old female Event Personnel Román Boyle Drawer In, Karthik Caban RN RN, Abhay English RTR Monitor, Surinder Enamorado RTR Scrub, Iris Mittal program management analyst Performed Art Access - R femoral artery* Left Heart Cath w/or w/o Coronaries [id number] [facility] [address] Initial Mod Sed Same Phys/QHP Gr5y 816574 Hemostasis w/ Mynx 00122 Mod Sed Same Phys/QHP Ea 742600, supervision of conscious sedation Indication Chest pain Procedure Narrative The Right Groin^ was infiltrated with 1% Lidocaine subcutaneous anesthesia. A PINNACLE 6FR Sheath #[id number] sheath was inserted into the RFA^. Coronary angiography was performed using coronary diagnostic catheters. The right coronary system was accessed and visualized with a JR4 catheter. The left coronary system was accessed and visualized with a JL4 catheter. The left ventricle was accessed and visualized with a PIGTAIL catheter. Closure device was deployed with a 6 Fr MYNXGRIP 6/7F #[id number]. The patient tolerated the procedure well and there were no complications associated with the procedure. There was no hematoma. Intraoperative Conscious Sedation Sedation start time: 1112 Case end Time: 1150 Versed 2 mg [facility] [address] [place] [address] INVASIVE PROCEDURE REPORT Name: NETTIE FROST Room #: REG [facility] [id number] Admission: 09/28/19 Attend Phys: Román Dumont Discharge: Date of : 67 Report #: [id number] Fluoro Time: 2.56 minutes Dose: DAP 2321.80 cGycm2 319 mGy Contrast Type and Amount: Omnipaque 70 ml Coronary Angiography The patient's coronary anatomy is right dominant. Diagnostic Cath Left Main Large-caliber vessel normal origin bifurcates left anterior descending left circumflex free of high-grade disease LAD Moderate caliber type II vessel courses in the anterior interventricular sulcus giving rise to septal diagonal branches. It is tortuous in its course but is free of high-grade disease. Diagonal 1 Moderate caliber bifurcating vessel courses on the anterolateral wall without high-grade lesions noted Circumflex Moderate caliber vessel coursing in the AV groove laterally giving rise to moderate marginal branches and continues on terminating is a small posterior wall branch. No high-grade lesions are present OM1 Moderate caliber vessel coursing on the lateral aspect of the ventricle without significant high-grade lesion Right Coronary Moderate caliber vessel normal origin courses in the AV groove with an initial matias's crook deformity. Then gives rise to right atrial and right ventricular branches as it courses posterior to the crux of the heart giving rise to a small caliber posterior descending artery and terminating is small posterior wall branch. No high-grade lesions are noted R PDA Small caliber vessel without high-grade lesions noted Left Ventriculography Left Ventriculography was not performed. Hemodynamics The aortic pressure is 159/87 mmHg with a mean of 111 mmHg. The left ventricular pressure is 157/11 mmHg with a mean of mmHg. The left ventricular end diastolic pressure is 29 mmHg. <ELECTRONICALLY SIGNED> By: Román Boyle MD 09/28/19 1338 1338 1338 Román Boyle MD /INF
--- NOTE | 2019-09-28 16:09 | EKG ---
[facility] [place] [address] ELECTROCARDIOGRAM REPORT Name: NETTIE FROST Room #: REG [facility].#: [id number] Admission: 09/28/19 Attend Phys: Román Boyle Discharge: Date of : 67 Report #: [id number] THIS REPORT FOR: cc: Peter Lee MD, Neal A. MD Couchonnal, Luis F. 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: [facility] : 1965 Requested By: Román Boyle Order Number: [id number] MD: Khoi Madrigal Measurements Intervals [place] Rate: 80 P: [place]: 302 QRS: 1 QRSD: 120 T: 20 QT: 390 QTc: 450 Interpretive Statements Atrial-paced complexes Prolonged CA interval IVCD, consider atypical RBBB Probable left ventricular hypertrophy Compared to ECG 03/01/2019 14:26:38 Electronically Signed On 09-28-2019 16:06:53 CDT by Khoi Madrigal [email or web address] <ELECTRONICALLY SIGNED> By: Khoi Madrigal MD 09/28/19 1606 0958 0958 Khoi Madrigal MD /EPI
== END | disposition home or self-care (01) ==
LOC: CATH
PROVIDERS: Internal Medicine
DX: R07.9 Chest pain, unspecified (principal); I48.91 Unspecified atrial fibrillation; M19.90 Unspecified osteoarthritis, unspecified site; I10 Essential (primary) hypertension; J45.909 Unspecified asthma, uncomplicated; E03.9 Hypothyroidism, unspecified; K21.9 Gastro-esophageal reflux disease without esophagitis; F41.9 Anxiety disorder, unspecified; F31.9 Bipolar disorder, unspecified; Z79.899 Other long term (current) drug therapy; Z98.890 Other specified postprocedural states; Z87.891 Personal history of nicotine dependence; Z79.01 Long term (current) use of anticoagulants; Z96.652 Presence of left artificial knee joint; Z91.040 Latex allergy status; Z88.8 Allergy status to other drugs, medicaments and biological substances; Z88.2 Allergy status to sulfonamides

== ENCOUNTER → 2019-10-02 | Outpatient (CLI) | payer OTHER ==
[~2019-10-02] MED LIST changes: +CARDIZEM SR 60M60 MG PO
== END ==
LOC: SJCVCIMAG 15:34
PROVIDERS: ATTEND Internal Medicine
DX: R10.30 Lower abdominal pain, unspecified (principal); R19.09 Other intra-abdominal and pelvic swelling, mass and lump

== ENCOUNTER → 2019-10-16 | Outpatient (CLI) | payer OTHER ==
[2019-10-16 10:55] LABS: HEMATOCRIT 41.5 % (37.0-47.0); HEMOGLOBIN 13.6 gm/dL (12.0-15.0); MCH 27.5 pg (26.0-34.0); MCHC 32.8 g/dL (28.0-37.0); MCV 83.7 fL (80.0-100.0); RBC 4.95 mil/uL (4.20-5.00); RDW 14.7 % (10.5-14.5); WBC 10.7 thou/uL (4.0-11.0)
[2019-10-16 11:16] LABS: ALBUMIN 3.4 g/dL (3.4-5.0); CALCIUM 10.6 mg/dL (8.5-10.1); POTASSIUM 4.3 mmol/L (3.5-5.1); TOTAL BILIRUBIN 0.2 mg/dL (0.2-1.0); TOTAL PROTEIN 6.5 g/dL (6.4-8.2)
== END ==
LOC: CAT 09:34
PROVIDERS: ATTEND Internal Medicine Cardiovascular Disease
DX: I48.91 Unspecified atrial fibrillation (principal)

== ENCOUNTER 2019-10-23 09:41 | Outpatient (CLI) | payer OTHER ==
[~2019-10-23] VITALS: Ht 177.8 cm; Wt 112.5 kg
[2019-10-23] VITALS (7 sets, daily range): BP systolic 111–128; BP diastolic 68–83
[~2019-10-23 09:41] MED LIST changes: -CARDIZEM SR 60M60 MG PO
[2019-10-23 10:33] LABS: ABSOLUTE NEUTROPHILS 6.5 thou/uL (1.4-8.2); BASOPHILS 0.9 % (0.0-2.0); EOSINOPHILS 4.2 % (0.0-3.0); HEMOGLOBIN 13.4 gm/dL (12.0-15.0); LYMPHOCYTES 29.9 % (24.0-44.0); MCH 27.4 pg (26.0-34.0); MCHC 32.6 g/dL (28.0-37.0); MCV 84.2 fL (80.0-100.0); MONOCYTES 10.1 % (1.0-8.0); PLATELET COUNT 266 thou/uL (150-400); POLYS 54.9 % (36.0-66.0); RBC 4.88 mil/uL (4.20-5.00); RDW 14.5 % (10.5-14.5); WBC 11.9 thou/uL (4.0-11.0)
[2019-10-23 10:42] LABS: CALCIUM 10.5 mg/dL (8.5-10.1); CREATININE 1.2 mg/dL (0.6-1.0); POTASSIUM 3.8 mmol/L (3.5-5.1)
[2019-10-23 10:45] LABS: APTT 26.9 Seconds (24.5-32.8); PROTIME 10.1 Seconds (9.3-11.4)
[2019-10-23 10:48] LABS: ALBUMIN 3.2 g/dL (3.4-5.0); TOTAL BILIRUBIN 0.3 mg/dL (0.2-1.0); TOTAL PROTEIN 6.4 g/dL (6.4-8.2)
--- NOTE | 2019-10-23 20:47 | NUR ---
ASSUMMED PT CARE AT [facility] 1730. PT A&O X4. ASSESSMENT CHARTED. FALL PRECAUTIONS IN PLACE. PT DENIES HAVING CHEST PAIN. PT DENIES HAVING SOB. PT STATED SHE HAS CHRONIC BACK PAIN. PT RECEIVED ANALGESICS. PT STATED ANALGESICS HELPED RELIEVE BACK PAIN. VITAL SIGNS STABLE. R AND L GROIN C/D/I. NO HEMATOMA. PT IN BEDREST. EDUCATED PT ABOUT POC. PT STATED UNDERSTANDING AND DENIED HAVING FURTHER QUESTIONS. PT COMFORTABLE IN BED. PT DENIES HAVING FURTHER CONCERNS.
[2019-10-24 00:21] VITALS: BP 134/85
[2019-10-24 05:14] VITALS: BP 112/63
--- NOTE | 2019-10-24 06:34 | NUR ---
ASSESSMENTS CHARTED, MEDS GIVEN. OFF BED REST AT 2203. CALLAHAN TAKEN OUT. PATIENT UP AT ANSHU. GROINS DRY AND SOFT. FALL PRECAUTIONS IN PLACE DURING SHIFT.
[2019-10-24 07:15] VITALS: BP 105/68
[2019-10-24] MEDS ORDERED: CARDIZEM SR 60M60 MG PO (08:50)
[2019-10-24 10:03] VITALS: BP 105/68
--- NOTE | 2019-10-24 10:32 | NUR ---
ASSUMED CARE PT SHIFT CHANGE. ASSESSMENT CHARTED.MEDS GIVEN PER JUN. PT ALERT AND ORIENTED. INDEPENDENT. VSS. DENIES PAIN. O2 SATS WNL ON ROOM AIR. GROIN SITES CDI NO HEMATOMAS. DC ORDERS ACKNOWLEDGED AND IMPLEMENTED. PAPERWORK DISCUSSED WITH PT, COMMUNICATES UNDERSTANDING. IV REMOVED. TELE REMOVED. PT LEFT UNIT WITH ALL BELONGINGS.
--- NOTE | 2019-10-24 15:58 | P ---
[facility] [place] [address] PROCEDURE REPORT Name: NETTIE FROST Room #: DEP HERMES Alvarez#: [id number] Admission: 10/23/19 Attend Phys: Khoi Madrigal MD Discharge: 10/24/19 Date of : 67 Report #: [id number] THIS REPORT FOR: cc: Peter Lee MD, Neal A. MD Couchonnal, Luis F. MD ~ CC: Khoi Lee DATE OF SERVICE: 10/23/2019 DIAGNOSES: 1. Paroxysmal atrial fibrillation. 2. Nonsustained ventricular tachycardia. 3. Sick sinus syndrome, status post pacemaker. 4. Supraventricular tachycardia. HISTORY: The patient is a 54-year-old female with history of recurrent atrial fibrillation as well as sick sinus syndrome, status post [employer] dual chamber pacemaker, who recently had evidence of some nonsustained ventricular tachycardia, on her pacemaker and some SVT. She is here for EP study, possible ICD, possible SVT ablation, possible AFib ablation. PROCEDURES PERFORMED: 1. Atrial fibrillation ablation, CPT code 33034. 2. 3D mapping, CPT code 35834. 3. Intracardiac echo, CPT code 46519. 4. EP study with isoproterenol infusion, CPT code 29324. 5. Preprocedure pacemaker reprogramming, CPT code 32723. 6. Post-procedure pacemaker reprogramming, CPT code 11759. ANESTHESIA: The patient underwent general anesthesia with no anesthesia related complications. DESCRIPTION OF PROCEDURE: The patient underwent informed consent. We discussed the details of the procedure including the risks, which include but not limited to bleeding, vascular damage, stroke, VT as well as damage to the pacemaker. She understood these risks and is willing to proceed. The patient was brought to the EP laboratory in a fasting and sedated state, prepped and draped in a sterile fashion. I obtained access to the right femoral vein x 3 and the left femoral vein x 1. In the right femoral vein, I placed an 8, 9 and 7-Swazi short sheath. In the left femoral vein, I placed a 7-Swazi short sheath using the modified Seldinger technique. Next, under fluoroscopy, 2 quadripolar catheters were placed at the HRA and RV positions and a decapolar catheter was placed easily in the coronary sinus. Prior to the EP study, her [address] [address] PROCEDURE REPORT Name: SANTOSHNETTIE TAMI Room #: DEP HERMES Alvarez#: [id number] Admission: 10/23/19 Attend Phys: Khoi Madrigal MD Discharge: 10/24/19 Date of : 67 Report #: [id number] pacemaker was reprogrammed to the VVI 40 mode. Basic EP study was performed. At baseline, the patient was in sinus rhythm with a sinus cycle length of 800 milliseconds, DC interval 170 milliseconds, QRS duration 90 milliseconds, QT interval 380 milliseconds. Atrial burst pacing was then performed and AV block was noted at 430 milliseconds. AV matt ERP was noted at be greater than 500 milliseconds at [address] cycle length. Ventricular pacing was performed and VA block was noted at 340 milliseconds. Ventricular ERP was noted at 230 milliseconds at a [address] cycle length. Next, ventricular stimulation was performed to see if she had any inducible ventricular tachycardia. I performed this at 2 different cycle lengths of 500 milliseconds and 600 milliseconds. There was no inducible nonsustained or sustained monomorphic ventricular tachycardia. Next, isoproterenol infusion was initiated at 2 mcg per minute and AV block was noted at 380 milliseconds. Atrial ERP was noted at 280 milliseconds at a [address] cycle length. Isoproterenol infusion was increased to 4 mcg per minute. VA block was noted at 280 milliseconds. Ventricular ERP was noted at 210 milliseconds at [address] cycle length. Ventricular conduction was both midline and decremental. Next, atrial pacing was performed and AV block was noted 310 milliseconds. An atrial ERP was noted at 260 milliseconds at a [address] cycle length. As such, the patient had no inducible monomorphic ventricular tachycardia and the patient did not have any inducible SVT. As such, the patient was prepped for AFib ablation. Next, I removed my HRA and RV catheters and prepped for transseptal. Using intracardiac ultrasound, there was evidence of two left and two right pulmonary veins. Using [employer], 3D geometry was created of the left atrium and this was merged with the cardiac CT scan. The patient was then systemically heparinized and a transseptal was performed using an SL1 sheath and a Welcome needle. Using an SL1 sheath, I was able to get my guidewire into the left inferior pulmonary vein and I could not advance and advance my SL1 sheath into the left atrium, but I exchanged for the cryo sheath and this was able to cross into the left atrium without issues. Next, via the cryo sheath, a Lasso catheter was placed in the left atrium. 3D geometry of the left atrium was created, which showed a connection of the 4 pulmonary veins. The cryoballoon was placed into the left atrium. I started by isolating the left inferior pulmonary vein. This underwent a 4-minute freeze and isolated within 40 seconds. I did a single freeze in this vein. I then turned my attention to the left superior pulmonary vein, which had a very vertical takeoff. This vein underwent a 4-minute freeze, which resulted in isolation 21 seconds and this additional freeze of 120 seconds. The right superior pulmonary vein underwent a 140 second freeze and I came off due to cold temps. The vein had isolated within 95 seconds, but then reconnected. Therefore, a second freeze was performed of 4 minutes' duration and this resulted in isolation of the vein within 65 seconds. I then turned my attention to the right inferior pulmonary vein. The first freeze was performed in the upper branch of this vessel and I came after 95 seconds due to poor temps. I [facility] [address] [place] [address] PROCEDURE REPORT Name: NETTIE FROST Room #: DEP [facility] Kim#: [id number] Admission: 10/23/19 Attend Phys: Khoi Madrigal MD Discharge: 10/24/19 Date of : 67 Report #: [id number] then therefore engaged the lower branch of the right inferior pulmonary vein and clocked the catheter to get a good seal. This freeze was of 4 minutes' duration and resulted in isolation within 38 seconds Next, I removed the cryoballoon from the left atrium and placed the Lasso catheter back into the left atrium and created a detailed 3D voltage map. This showed that we had created a wide circumferential ablation of the pulmonary veins and everything was now isolated. Using intracardiac ultrasound, I verified there was no pericardial effusion. Next, the patient received systemic protamine. Once the ACT was within acceptable range, catheters and sheaths were pulled and hemostasis was obtained. The pacemaker was programmed back to its nominal settings and found to be functioning normally. CONCLUSIONS: 1. Successful AFib ablation with isolation of the 4 pulmonary veins. 2. Normal EP study with no inducible SVT or ventricular tachycardia, on or off isoproterenol. 3. Successful pacemaker reprogramming. <ELECTRONICALLY SIGNED> By: Khoi Madrigal MD 10/24/19 1558 1617 0102 Khoi Madrigal MD /nt
== END 2019-10-24 10:25 | disposition home or self-care (01) ==
LOC: CATH 09:41 → 2N 16:56 → CATH 10-24 10:25
PROVIDERS: ATTEND Internal Medicine Cardiovascular Disease
DX: I48.0 Paroxysmal atrial fibrillation (principal); I49.5 Sick sinus syndrome; I47.1 Supraventricular tachycardia; I47.2 Ventricular tachycardia; I10 Essential (primary) hypertension; E03.9 Hypothyroidism, unspecified; F31.9 Bipolar disorder, unspecified; F41.9 Anxiety disorder, unspecified; K21.9 Gastro-esophageal reflux disease without esophagitis; J45.909 Unspecified asthma, uncomplicated; Z98.890 Other specified postprocedural states; Z79.899 Other long term (current) drug therapy; Z79.01 Long term (current) use of anticoagulants; Z96.652 Presence of left artificial knee joint; Z91.040 Latex allergy status; Z11.59 Encounter for screening for other viral diseases
CPT/HCPCS: 10081; 62110; 62900; 65020; 65040; 65131

== ENCOUNTER 2019-12-22 07:27 | Emergency (ER) | payer OTHER ==
[~2019-12-22] VITALS: Ht 177.8 cm; Wt 113.4 kg
[~2019-12-22 07:27] MED LIST changes: +CARDIZEM SR 60M60 MG PO
--- NOTE | 2019-12-22 08:50 | EKG ---
[facility] [place] [address] ELECTROCARDIOGRAM REPORT Name: NETTIE FROST Room #: PRE M.R.#: [id number] Admission: Attend Phys: Discharge: Date of : 67 Report #: [id number] THIS REPORT FOR: cc: Peter Lee MD, Neal A. 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: : 1965 Requested By: Oscar Whiteside Order Number: [id number] MD: Chemo Morgan Measurements Intervals [place] Rate: 98 P: 33 [place]: 192 QRS: 9 QRSD: 115 T: 15 QT: 387 QTc: 495 Interpretive Statements Sinus rhythm Incomplete right bundle branch block Inferior infarct, old Compared to ECG 09/28/2019 09:58:31 Atrial pacing no longer present Electronically Signed On 12-22-2019 8:50:02 CDT by Chemo Morgan [email or web address] <ELECTRONICALLY SIGNED> By: Chemo Morgan MD, [facility] 12/22/19 0850 0749 Chemo Morgan MD, [facility] /EPI
[2019-12-22 09:12] LABS: ABSOLUTE NEUTROPHILS 5.8 thou/uL (1.4-8.2); BASOPHILS 1.5 % (0.0-2.0); EOSINOPHILS 7.1 % (0.0-3.0); HEMATOCRIT 38.1 % (37.0-47.0); HEMOGLOBIN 12.8 gm/dL (12.0-15.0); LYMPHOCYTES 26.1 % (24.0-44.0); MCH 28.4 pg (26.0-34.0); MCHC 33.5 g/dL (28.0-37.0); MCV 84.8 fL (80.0-100.0); MONOCYTES 11.5 % (1.0-8.0); PLATELET COUNT 263 thou/uL (150-400); POLYS 53.8 % (36.0-66.0); RDW 14.6 % (10.5-14.5); WBC 10.7 thou/uL (4.0-11.0)
[2019-12-22 09:19] LABS: ANION GAP 6 mmol/L (7-16); BUN 5 mg/dL (7-18); CALCIUM 10.1 mg/dL (8.5-10.1); CHLORIDE 108 mmol/L (98-107); CO2 28 mmol/L (21-32); CREATININE 0.9 mg/dL (0.6-1.0); GLUCOSE 87 mg/dL (74-106); POTASSIUM 3.8 mmol/L (3.5-5.1); SODIUM 142 mmol/L (136-145)
[2019-12-22 09:27] LABS: APTT 29.2 Seconds (24.5-32.8); D-DIMER 0.57 ug/mLFEU (0.19-0.50); PROTIME 10.6 Seconds (9.3-11.4)
[2019-12-22 09:29] LABS: ALBUMIN 3.4 g/dL (3.4-5.0); LIPASE 73 U/L (73-393); MAGNESIUM 2.2 mg/dL (1.8-2.4); SGOT 18 U/L (15-37); SGPT 32 U/L (30-65); TOTAL BILIRUBIN 0.2 mg/dL (0.2-1.0); TOTAL PROTEIN 6.7 g/dL (6.4-8.2); TROPONIN-I <0.06 ng/mL (<0.06)
[2019-12-22 09:43] LABS: URINE BILIRUBIN NEGATIVE (Negative); URINE BLOOD NEGATIVE (Negative); URINE CLARITY CLEAR; URINE COLOR YELLOW; URINE GLUCOSE-RANDOM* NEGATIVE (Negative); URINE KETONES NEGATIVE (Negative); URINE LEUKOCYTES-REFLEX TRACE (Negative); URINE NITRITE-REFLEX NEGATIVE (Negative); URINE PROTEIN (DIPSTICK) NEGATIVE (Negative); URINE SPECIFIC GRAVITY <= 1.005 (1.005-1.035); URINE UROBILINOGEN 0.2 E.U./dl (0.2-1.0)
[2019-12-22] MEDS ORDERED: PRILOSEC OTC20 MG PO (09:55)
[2019-12-22] MEDS ORDERED: ONDANSETRON ODT8 MG PO (09:55)
[2019-12-22] MEDS ORDERED: PHENERGAN 25 MG25 M1 PO (10:08)
[2019-12-22 10:36] VITALS: BP 117/77
== END 2019-12-22 10:36 | disposition home or self-care (01) ==
LOC: ER 07:27
PROVIDERS: Emergency Medicine
DX: R55 Syncope and collapse (principal); Z20.828 Contact with and (suspected) exposure to other viral communicable diseases; R00.2 Palpitations; R06.00 Dyspnea, unspecified; E66.9 Obesity, unspecified; J45.909 Unspecified asthma, uncomplicated; I10 Essential (primary) hypertension; E03.9 Hypothyroidism, unspecified; K21.9 Gastro-esophageal reflux disease without esophagitis; R10.9 Unspecified abdominal pain; Z91.040 Latex allergy status; Z88.1 Allergy status to other antibiotic agents; Z88.2 Allergy status to sulfonamides; Z79.899 Other long term (current) drug therapy; Z98.890 Other specified postprocedural states

== ENCOUNTER → 2019-12-26 | Outpatient (CLI) | payer OTHER ==
[~2019-12-26] MED LIST changes: +ONDANSETRON ODT8 MG PO; +PHENERGAN 25 MG25 M1 PO; +PRILOSEC OTC20 MG PO
== END ==
LOC: LAB 12:21
PROVIDERS: ATTEND Family Medicine
DX: Z20.828 Contact with and (suspected) exposure to other viral communicable diseases (principal)

== ENCOUNTER → 2020-01-09 | Outpatient (CLI) | payer OTHER | LOC: RAD 17:03 | PROVIDERS: ATTEND Family Medicine | DX: J98.11 Atelectasis (principal); J98.4 Other disorders of lung ==

== ENCOUNTER 2020-02-02 20:39 | Emergency (ER) | payer OTHER ==
[~2020-02-02] VITALS: Ht 177.8 cm; Wt 113.4 kg
[2020-02-02 21:11] LABS: URINE BILIRUBIN NEGATIVE (Negative); URINE BLOOD TRACE (Negative); URINE CLARITY CLEAR; URINE COLOR YELLOW; URINE GLUCOSE-RANDOM* NEGATIVE (Negative); URINE KETONES NEGATIVE (Negative); URINE LEUKOCYTES-REFLEX TRACE (Negative); URINE NITRITE-REFLEX NEGATIVE (Negative); URINE PROTEIN (DIPSTICK) NEGATIVE (Negative); URINE UROBILINOGEN 0.2 E.U./dl (0.2-1.0)
[2020-02-02 22:48] LABS: ABSOLUTE NEUTROPHILS 6.3 thou/uL (1.4-8.2); BASOPHILS 1.3 % (0.0-2.0); EOSINOPHILS 5.2 % (0.0-3.0); HEMATOCRIT 35.2 % (37.0-47.0); HEMOGLOBIN 11.5 gm/dL (12.0-15.0); LYMPHOCYTES 24.2 % (24.0-44.0); MCH 27.9 pg (26.0-34.0); MCHC 32.5 g/dL (28.0-37.0); MCV 85.8 fL (80.0-100.0); MONOCYTES 9.4 % (1.0-8.0); PLATELET COUNT 262 thou/uL (150-400); POLYS 59.9 % (36.0-66.0); RBC 4.11 mil/uL (4.20-5.00); RDW 14.1 % (10.5-14.5); WBC 10.6 thou/uL (4.0-11.0)
[2020-02-02 23:01] LABS: ANION GAP 7 mmol/L (7-16); BUN 14 mg/dL (7-18); CALCIUM 10.4 mg/dL (8.5-10.1); CHLORIDE 109 mmol/L (98-107); CO2 27 mmol/L (21-32); GLUCOSE 101 mg/dL (74-106); POTASSIUM 3.8 mmol/L (3.5-5.1); SODIUM 143 mmol/L (136-145)
[2020-02-02 23:03] LABS: MAGNESIUM 2.3 mg/dL (1.8-2.4); PHOSPHORUS 2.9 mg/dL (2.5-4.9)
[2020-02-02 23:10] LABS: ALBUMIN 3.4 g/dL (3.4-5.0); SGOT 22 U/L (15-37); SGPT 32 U/L (30-65); TOTAL BILIRUBIN 0.3 mg/dL (0.2-1.0); TOTAL PROTEIN 6.4 g/dL (6.4-8.2); TROPONIN-I <0.06 ng/mL (<0.06)
[2020-02-03 00:07] VITALS: BP 133/82
--- NOTE | 2020-02-05 07:27 | EKG ---
[facility] [place] [address] ELECTROCARDIOGRAM REPORT Name: NETTIE FROST Room #: ON LICENSE OF [facility] Kim#: [id number] Admission: 02/02/20 Attend Phys: Discharge: 02/03/20 Date of : 67 Report #: [id number] THIS REPORT FOR: cc: Peter Lee MD, Neal A. 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 : 1965 Requested By: Temitope Dowd Order Number: [id number] MD: Chemo Morgan Measurements Intervals [place] Rate: 96 P: 12 [place]: 257 QRS: -11 QRSD: 107 T: -27 QT: 333 QTc: 421 Interpretive Statements Sinus rhythm Prolonged MI interval Poor R wave progression Inferior infarct, age indeterminate Compared to ECG 12/22/2019 07:49:06 First degree AV block now present Electronically Signed On 02-05-2020 7:26:49 CDT by Chemo Morgan [email or web address] <ELECTRONICALLY SIGNED> By: Chemo Morgan MD, FAC 02/05/20725 52 52 Chemo Morgan MD, [facility] /EPI
== END 2020-02-03 00:08 | disposition home or self-care (01) ==
LOC: ER 20:39
PROVIDERS: Student in an Organized Health Care Education/Training Program
DX: R42 Dizziness and giddiness (principal); R20.0 Anesthesia of skin; R20.2 Paresthesia of skin; J45.909 Unspecified asthma, uncomplicated; I10 Essential (primary) hypertension; E03.9 Hypothyroidism, unspecified; Z91.040 Latex allergy status; Z88.2 Allergy status to sulfonamides; Z88.1 Allergy status to other antibiotic agents; Z91.041 Radiographic dye allergy status; Z88.8 Allergy status to other drugs, medicaments and biological substances; Z79.899 Other long term (current) drug therapy; Z96.652 Presence of left artificial knee joint

== ENCOUNTER → 2020-02-22 | Outpatient (CLI) | payer OTHER ==
[~2020-02-22] VITALS: Ht 177.8 cm; Wt 117.6 kg
[~2020-02-22] MED LIST changes: +COZAAR 50 MG TA50 M1 PO; -GABAPENTIN 100100 MG PO; +NEURONTIN600 MG PO
[2020-02-22 14:03] VITALS: BP 132/81
--- NOTE | 2020-02-22 14:21 | NUR ---
Pain Clinic Assessment: 1. History of Osteoarthritis: KNEES LOW BACK History of Rheumatoid Arthritis: DENIES 2. Height: 5 ft. 10 in. 177.8 cm. Weight: 259.2 lb. oz. 117.573 kg. Patient's BMI: 37.2 3. Vital Signs: BP: 132/81 Pulse: 80 Resp: 18 Temp: 02 Sat: 100 ECG Mon: 4. Pain Intensity: 6 5. Fall Risk: Dizziness: N Needs help standing or walking: N Fallen in the last 3 months: N Fall risk comments: - 6. Patient on Blood Thinner: ELIIQUIS 7. History of Hypertension: Y 8. Opioid Therapy greater than 6 weeks: Y Opiate Contract Signed: 9. Risk Assessment Tool Provided: 1- LOW 10. Functional Assessment Tool: 11. Recreational Drug Use: Never Drug Type: Tobacco Use: Never Smoker Tobacco Type: Amount or Packs/day: How Many Years: Alcohol Use: No Frequency: Quant:
== END ==
LOC: PAIN 06:57
PROVIDERS: ATTEND Anesthesiology Pain Medicine
DX: G89.4 Chronic pain syndrome (principal)

== ENCOUNTER → 2020-03-04 | Outpatient (CLI) | payer OTHER ==
[2020-03-04 13:31] LABS: CREATININE 1.2 mg/dL (0.6-1.0); PHOSPHORUS 2.7 mg/dL (2.5-4.9)
[2020-03-05 02:06] LABS: CALCIUM IONIZED* 6.3 mg/dL (4.5-5.6)
[2020-03-05 07:08] LABS: 25-HYDROXY TOTAL 12.2 ng/mL (30.0-100.0)
[2020-03-05 10:07] LABS: C-PEPTIDE 4.1 ng/mL (1.1-4.4)
== END ==
LOC: LAB 11:52
PROVIDERS: ATTEND Internal Medicine
DX: E83.52 Hypercalcemia (principal); E16.2 Hypoglycemia, unspecified

== ENCOUNTER → 2020-03-04 | Outpatient (CLI) | payer OTHER ==
[~2020-03-04] VITALS: Ht 177.8 cm; Wt 112.2 kg
[2020-03-04 12:47] VITALS: BP 115/79
--- NOTE | 2020-03-04 13:11 | NUR ---
Pain Clinic Assessment: 1. History of Osteoarthritis: KNEES LOW BACK SHOULDERS HIPS ANKLES History of Rheumatoid Arthritis: DENIES 2. Height: 5 ft. 10 in. 177.8 cm. Weight: 247.4 lb. oz. 112.220 kg. Patient's BMI: 35.5 3. Vital Signs: BP: 115/79 Pulse: 82 Resp: 16 Temp: 02 Sat: 97 ECG Mon: 4. Pain Intensity: 6 5. Fall Risk: Dizziness: N Needs help standing or walking: N Fallen in the last 3 months: N Fall risk comments: - 6. Patient on Blood Thinner: ELIIQUIS 7. History of Hypertension: Y 8. Opioid Therapy greater than 6 weeks: Y Opiate Contract Signed: 9. Risk Assessment Tool Provided: 1- LOW 10. Functional Assessment Tool: 60/ 11. Recreational Drug Use: Never Drug Type: Tobacco Use: Former Smoker Tobacco Type: Amount or Packs/day: How Many Years: 20 Alcohol Use: No Frequency: Quant:
== END | disposition home or self-care (01) ==
LOC: PAIN
PROVIDERS: ATTEND Anesthesiology Pain Medicine
DX: M54.16 Radiculopathy, lumbar region (principal); I10 Essential (primary) hypertension; M19.90 Unspecified osteoarthritis, unspecified site; Z98.890 Other specified postprocedural states; Z79.899 Other long term (current) drug therapy; Z79.01 Long term (current) use of anticoagulants; Z91.040 Latex allergy status; Z88.6 Allergy status to analgesic agent; Z91.041 Radiographic dye allergy status

== ENCOUNTER 2020-03-12 20:39 | Emergency (ER) | payer OTHER ==
[~2020-03-12] VITALS: Ht 180.3 cm; Wt 117.9 kg
[2020-03-12 21:22] LABS: BASOPHILS 0.5 % (0.0-2.0); EOSINOPHILS 1.5 % (0.0-3.0); HEMATOCRIT 43.1 % (37.0-47.0); HEMOGLOBIN 13.8 gm/dL (12.0-15.0); LYMPHOCYTES 10.9 % (24.0-44.0); MCH 27.3 pg (26.0-34.0); MCV 85.3 fL (80.0-100.0); MONOCYTES 6.3 % (1.0-8.0); PLATELET COUNT 327 thou/uL (150-400); POLYS 80.8 % (36.0-66.0); RBC 5.06 mil/uL (4.20-5.00); RDW 13.8 % (10.5-14.5); WBC 17.3 thou/uL (4.0-11.0)
[2020-03-12 21:25] LABS: ANION GAP 9 mmol/L (7-16); BUN 13 mg/dL (7-18); CALCIUM 11.9 mg/dL (8.5-10.1); CHLORIDE 109 mmol/L (98-107); CO2 26 mmol/L (21-32); CREATININE 1.2 mg/dL (0.6-1.0); GLUCOSE 130 mg/dL (74-106); POTASSIUM 4.4 mmol/L (3.5-5.1); SODIUM 144 mmol/L (136-145)
[2020-03-12 21:34] LABS: MAGNESIUM 2.4 mg/dL (1.8-2.4); TROPONIN-I <0.06 ng/mL (<0.06)
[2020-03-12 21:39] LABS: URINE BILIRUBIN NEGATIVE (Negative); URINE BLOOD NEGATIVE (Negative); URINE CLARITY CLEAR; URINE COLOR YELLOW; URINE GLUCOSE-RANDOM* NEGATIVE (Negative); URINE KETONES NEGATIVE (Negative); URINE LEUKOCYTES-REFLEX NEGATIVE (Negative); URINE NITRITE-REFLEX NEGATIVE (Negative); URINE PROTEIN (DIPSTICK) NEGATIVE (Negative); URINE UROBILINOGEN 0.2 E.U./dl (0.2-1.0)
[2020-03-12 21:49] LABS: AMP/METHAMP Negative (Negative); BARBITURATES Negative (Negative); BENZODIAZEPINES Negative (Negative); COCAINE Negative (Negative); METHADONE Negative (Negative); OPIATES POSITIVE (Negative); PCP Negative (Negative)
[2020-03-13 02:36] VITALS: BP 142/88
--- NOTE | 2020-03-13 07:43 | EKG ---
[facility] [address] ELECTROCARDIOGRAM REPORT Name: NETTIE FROST [facility] [id number] Admission: 03/12/20 Attend Phys: Discharge: 03/13/20 Date of : 67 Report #: [id number] THIS REPORT FOR: cc: Peter Lee MD, Neal A. 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 Recommend repeat tracing with all leads present Electronically Signed On 03-13-2020 7:43:46 MATH AND PHYSICS INSTRUCTOR by Chemo Morgan [email or web address] <ELECTRONICALLY SIGNED> By: Chemo Morgan MD, [facility] 03/13/20 0743 54 54 Chemo Morgan MD, [facility] /EPI
--- NOTE | 2020-03-13 14:37 | EKG ---
[facility] [address] ELECTROCARDIOGRAM REPORT Name: NETTIE FROST [id number] Admission: 03/12/20 Attend Phys: Discharge: 03/13/20 Date of : 67 Report #: [id number] THIS REPORT FOR: cc: Peter Lee MD, Neal A. 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 <ELECTRONICALLY SIGNED> By: Sandip Wooten MD, FACC 03/13/20 1437 19 19 Sandip Wooten MD, FAC /EPI
== END 2020-03-13 02:46 | disposition home or self-care (01) ==
LOC: ER 20:39
PROVIDERS: Emergency Medicine
DX: R41.82 Altered mental status, unspecified (principal); R51.9 Headache, unspecified; D72.829 Elevated white blood cell count, unspecified; I10 Essential (primary) hypertension; E03.9 Hypothyroidism, unspecified; J45.909 Unspecified asthma, uncomplicated; K21.9 Gastro-esophageal reflux disease without esophagitis; Z95.0 Presence of cardiac pacemaker; Z79.899 Other long term (current) drug therapy; Z88.2 Allergy status to sulfonamides; Z88.1 Allergy status to other antibiotic agents; Z88.8 Allergy status to other drugs, medicaments and biological substances; Z91.040 Latex allergy status; Z91.041 Radiographic dye allergy status; Z20.828 Contact with and (suspected) exposure to other viral communicable diseases

== ENCOUNTER 2020-03-13 18:55 | Inpatient (IN) | payer OTHER ==
[~2020-03-13] VITALS: Ht 177.8 cm; Wt 108.3 kg
[2020-03-13 19:59] VITALS: BP 143/88
[2020-03-13 20:27] LABS: HEMATOCRIT 37.5 % (37.0-47.0); HEMOGLOBIN 12.5 gm/dL (12.0-15.0); MCHC 33.4 g/dL (28.0-37.0); MCV 83.9 fL (80.0-100.0); RBC 4.47 mil/uL (4.20-5.00); RDW 13.5 % (10.5-14.5); WBC 15.5 thou/uL (4.0-11.0)
[2020-03-13 20:35] LABS: POTASSIUM 3.9 mmol/L (3.5-5.1)
[2020-03-13 20:41] LABS: ALBUMIN 3.5 g/dL (3.4-5.0); TOTAL BILIRUBIN 0.4 mg/dL (0.2-1.0); TOTAL PROTEIN 6.9 g/dL (6.4-8.2)
[2020-03-13 20:46] LABS: PHOSPHORUS 2.2 mg/dL (2.5-4.9)
[2020-03-13 20:52] LABS: CALCIUM 11.2 mg/dL (8.5-10.1)
[2020-03-14 04:00] VITALS: BP 126/87
[2020-03-14 08:54] VITALS: BP 150/97
[2020-03-14 11:25] VITALS: BP 127/84
[2020-03-14 16:10] VITALS: BP 127/81
[2020-03-14 20:05] VITALS: BP 124/71
[2020-03-15] VITALS (9 sets, daily range): BP systolic 86–125; BP diastolic 56–85
[2020-03-15 08:52] LABS: HEMATOCRIT 39.8 % (37.0-47.0); HEMOGLOBIN 12.6 gm/dL (12.0-15.0); MCH 27.2 pg (26.0-34.0); MCHC 31.6 g/dL (28.0-37.0); RBC 4.62 mil/uL (4.20-5.00); RDW 14.1 % (10.5-14.5); WBC 15.7 thou/uL (4.0-11.0)
[2020-03-15 09:09] LABS: ALBUMIN 3.2 g/dL (3.4-5.0); CALCIUM 10.6 mg/dL (8.5-10.1); TOTAL BILIRUBIN 0.4 mg/dL (0.2-1.0); TOTAL PROTEIN 6.4 g/dL (6.4-8.2)
[2020-03-16 02:06] LABS: URINE BILIRUBIN NEGATIVE (Negative); URINE BLOOD NEGATIVE (Negative); URINE CLARITY CLEAR; URINE COLOR YELLOW; URINE GLUCOSE-RANDOM* NEGATIVE (Negative); URINE KETONES NEGATIVE (Negative); URINE LEUKOCYTES-REFLEX NEGATIVE (Negative); URINE NITRITE-REFLEX NEGATIVE (Negative); URINE PROTEIN (DIPSTICK) NEGATIVE (Negative); URINE SPECIFIC GRAVITY <= 1.005 (1.005-1.035); URINE UROBILINOGEN 0.2 E.U./dl (0.2-1.0)
[2020-03-16 05:19] VITALS: BP 122/75
[2020-03-16 07:20] VITALS: BP 132/77
[2020-03-16 07:26] LABS: HEMATOCRIT 35.4 % (37.0-47.0); HEMOGLOBIN 11.3 gm/dL (12.0-15.0); MCH 27.3 pg (26.0-34.0); MCV 85.2 fL (80.0-100.0); RBC 4.15 mil/uL (4.20-5.00); RDW 13.4 % (10.5-14.5); WBC 13.8 thou/uL (4.0-11.0)
[2020-03-16 07:44] LABS: CALCIUM 10.6 mg/dL (8.5-10.1); POTASSIUM 3.9 mmol/L (3.5-5.1); TOTAL BILIRUBIN 0.3 mg/dL (0.2-1.0); TOTAL PROTEIN 5.9 g/dL (6.4-8.2)
[2020-03-16] MEDS ORDERED: PERCOCET 10-321 EAC1 PO ×2 (07:49)
[2020-03-16 11:45] VITALS: BP 140/82
[2020-03-16 14:08] VITALS: BP 140/82
== END 2020-03-16 15:20 | disposition home or self-care (01) | DRG 103 ==
LOC: 2N 18:55
PROVIDERS: ADMIT Family Medicine; ATTEND Family Medicine
DX: G43.819 Other migraine, intractable, without status migrainosus (principal); D72.829 Elevated white blood cell count, unspecified; J45.909 Unspecified asthma, uncomplicated; F41.9 Anxiety disorder, unspecified; E03.9 Hypothyroidism, unspecified; I10 Essential (primary) hypertension; K21.9 Gastro-esophageal reflux disease without esophagitis; Z96.652 Presence of left artificial knee joint; T50.905A Adverse effect of unspecified drugs, medicaments and biological substances, initial encounter; D35.1 Benign neoplasm of parathyroid gland; Y92.89 Other specified places as the place of occurrence of the external cause; F32.9 Major depressive disorder, single episode, unspecified; Z88.2 Allergy status to sulfonamides; Z88.8 Allergy status to other drugs, medicaments and biological substances; Z88.6 Allergy status to analgesic agent; Z88.1 Allergy status to other antibiotic agents; Z91.041 Radiographic dye allergy status; Z91.040 Latex allergy status; Z95.0 Presence of cardiac pacemaker; Z28.21 Immunization not carried out because of patient refusal
CPT/HCPCS: 10081

== ENCOUNTER → 2020-03-20 | Outpatient (CLI) | payer OTHER ==
[~2020-03-20] MED LIST changes: +PERCOCET 10-321 EAC1 PO
[2020-03-20 12:19] LABS: URINE BILIRUBIN NEGATIVE (Negative); URINE BLOOD 3+ (Negative); URINE CLARITY CLEAR; URINE COLOR YELLOW; URINE GLUCOSE-RANDOM* NEGATIVE (Negative); URINE KETONES NEGATIVE (Negative); URINE NITRITE-REFLEX NEGATIVE (Negative); URINE PROTEIN (DIPSTICK) TRACE (Negative); URINE SPECIFIC GRAVITY <= 1.005 (1.005-1.035); URINE UROBILINOGEN 0.2 E.U./dl (0.2-1.0)
[2020-03-20 12:21] LABS: HEMATOCRIT 40.9 % (37.0-47.0); HEMOGLOBIN 12.8 gm/dL (12.0-15.0); MCH 27.3 pg (26.0-34.0); MCHC 31.4 g/dL (28.0-37.0); MCV 86.9 fL (80.0-100.0); PLATELET COUNT 247 thou/uL (150-400); RBC 4.71 mil/uL (4.20-5.00); RDW 14.3 % (10.5-14.5); URINE LEUKOCYTES-REFLEX 1+ (Negative); WBC 22.3 thou/uL (4.0-11.0)
[2020-03-20 12:34] LABS: CASTS None Seen /LPF (None Seen); CRYSTALS None Seen /LPF (None Seen); SQUAMOUS 0-3 Few /LPF (0-3)
[2020-03-20 12:36] LABS: BACTERIA-REFLEX 1-9 Few /HPF (None Seen); URINE RBC 0-2 Rare /HPF (0-2); URINE WBC-REFLEX 6-15 Few /HPF (0-5)
[2020-03-20 12:38] LABS: ALBUMIN 3.6 g/dL (3.4-5.0); CALCIUM 11.2 mg/dL (8.5-10.1); CREATININE 1.2 mg/dL (0.6-1.0); POTASSIUM 3.7 mmol/L (3.5-5.1); TOTAL BILIRUBIN 0.4 mg/dL (0.2-1.0); TOTAL PROTEIN 6.9 g/dL (6.4-8.2)
[2020-03-20 13:35] LABS: ABSOLUTE NEUTROPHILS 16.7 thou/uL (1.4-8.2); ANISOCYTOSIS SLIGHT
== END ==
LOC: RAD 11:30
PROVIDERS: ATTEND Internal Medicine
DX: E21.3 Hyperparathyroidism, unspecified (principal); D72.829 Elevated white blood cell count, unspecified; R35.0 Frequency of micturition; R79.89 Other specified abnormal findings of blood chemistry

== ENCOUNTER → 2020-03-25 | Outpatient (CLI) | payer OTHER ==
--- NOTE | 2020-03-25 11:22 | NUR ---
Pain Clinic Assessment: 1. History of Osteoarthritis: KNEES LOW BACK SHOULDERS HIPS ANKLES History of Rheumatoid Arthritis: DENIES 2. Height: ft. in. cm. Weight: lb. oz. kg. Patient's BMI: 3. Vital Signs: BP: Pulse: Resp: Temp: 02 Sat: ECG Mon: 4. Pain Intensity: 4 5. Fall Risk: Dizziness: Needs help standing or walking: Fallen in the last 3 months: Fall risk comments: - 6. Patient on Blood Thinner: ELIIQUIS 7. History of Hypertension: Y 8. Opioid Therapy greater than 6 weeks: Y Opiate Contract Signed: 9. Risk Assessment Tool Provided: 1- LOW 10. Functional Assessment Tool: 60/70 11. Recreational Drug Use: Never Drug Type: Tobacco Use: Never Smoker Tobacco Type: Amount or Packs/day: How Many Years: Alcohol Use: No Frequency: Quant:
== END ==
LOC: PAIN 06:47
PROVIDERS: ATTEND Anesthesiology Pain Medicine
DX: M54.16 Radiculopathy, lumbar region (principal)

== ENCOUNTER → 2020-03-28 | Outpatient (CLI) | payer OTHER ==
[2020-03-28 16:31] LABS: ABSOLUTE NEUTROPHILS 7.4 thou/uL (1.4-8.2); BASOPHILS 1.1 % (0.0-2.0); EOSINOPHILS 3.7 % (0.0-3.0); HEMATOCRIT 39.8 % (37.0-47.0); HEMOGLOBIN 12.5 gm/dL (12.0-15.0); LYMPHOCYTES 26.8 % (24.0-44.0); MCH 26.7 pg (26.0-34.0); MCHC 31.5 g/dL (28.0-37.0); MCV 84.9 fL (80.0-100.0); MONOCYTES 9.2 % (1.0-8.0); PLATELET COUNT 300 thou/uL (150-400); POLYS 59.2 % (36.0-66.0); RBC 4.69 mil/uL (4.20-5.00); RDW 14.2 % (10.5-14.5); WBC 12.5 thou/uL (4.0-11.0)
[2020-03-28 16:48] LABS: ALBUMIN 3.6 g/dL (3.4-5.0); CALCIUM 11.1 mg/dL (8.5-10.1); TOTAL BILIRUBIN 0.2 mg/dL (0.2-1.0); TOTAL PROTEIN 6.9 g/dL (6.4-8.2)
== END ==
LOC: LAB 16:05
PROVIDERS: ATTEND Family Medicine
DX: N10 Acute pyelonephritis (principal); R79.89 Other specified abnormal findings of blood chemistry

== ENCOUNTER → 2020-04-16 | Outpatient (CLI) | payer OTHER | LOC: NUC 07:07 | PROVIDERS: ATTEND Internal Medicine | DX: E21.3 Hyperparathyroidism, unspecified (principal) ==

== ENCOUNTER → 2020-04-22 | Outpatient (CLI) | payer OTHER ==
[~2020-04-22] MED LIST changes: +LEVOTHYROXINE150 MCG PO; +LORAZEPAM 1 MG T1 MG PO
--- NOTE | 2020-04-22 11:29 | NUR ---
TO CT VIA W/C
== END ==
LOC: CAT 08:27
PROVIDERS: ATTEND Otolaryngology Plastic Surgery within the Head & Neck
DX: E21.0 Primary hyperparathyroidism (principal); E04.1 Nontoxic single thyroid nodule; J38.01 Paralysis of vocal cords and larynx, unilateral; J45.909 Unspecified asthma, uncomplicated; F31.9 Bipolar disorder, unspecified; K21.9 Gastro-esophageal reflux disease without esophagitis; Z90.09 Acquired absence of other part of head and neck; Z95.0 Presence of cardiac pacemaker

== ENCOUNTER → 2020-05-01 | Outpatient (CLI) | payer OTHER | LOC: LAB 08:53 | PROVIDERS: ATTEND Otolaryngology Plastic Surgery within the Head & Neck | DX: Z01.812 Encounter for preprocedural laboratory examination (principal); Z20.828 Contact with and (suspected) exposure to other viral communicable diseases ==

== ENCOUNTER 2020-05-06 10:01 | Observation (INO) | payer OTHER ==
[~2020-05-06] VITALS: Ht 177.8 cm; Wt 111.1 kg
--- NOTE | ~2020-05-06 | O ---
[facility] [place] [address] OPERATIVE REPORT Name: NETTIE FROST Room #: 434-P [facility] M..#: [id number] Admission: 05/06/20 Attend Phys: Kenneth Napier MD Discharge: Date of : 67 Report #: [id number] THIS REPORT FOR: cc: Peter Lee MD, Neal A. MD Thompson,Kenneth Weldon MD ~ DATE OF SERVICE: 05/06/2020 PREOPERATIVE DIAGNOSES: 1. Primary hyperparathyroidism. 2. Right vocal cord paralysis. POSTOPERATIVE DIAGNOSES: 1. Primary hyperparathyroidism. 2. Right vocal cord paralysis. OPERATIVE PROCEDURE: Parathyroid and neck exploration. ANESTHESIA: General. ESTIMATED BLOOD LOSS: 50 mL. INDICATIONS FOR SURGERY: The patient is a 54-year-old female who has primary hyperparathyroidism on the basis of elevated serum calcium and PTH levels. She has a past history of total thyroidectomy. She has also had cervical spine fusion and has a right vocal cord paralysis. Preoperative imaging was suspicious for left-sided parathyroid adenoma, but not diagnostic. We discussed exploration. We discussed the potential for a non-successful exploration. We also discussed the potential risks of recurrent laryngeal nerve and then to provide open repair or extreme care of the recurrent laryngeal nerve. DESCRIPTION OF PROCEDURE: The patient was sent to nuclear medicine department preoperatively and had injection of technetium sestamibi to allow for intraoperative gamma probe scanning. She was then brought into the operating room. After general endotracheal anesthesia was achieved and after intubation with a [employer] NIM (nerve integrity monitor), endotracheal tube, each recurrent laryngeal nerve ____ threshold and sensitivity was unremarkable. Both recurrent laryngeal nerves identified and preserved during the course of the procedure with the assistance of the nerve monitor and the nerve stimulator. Incision was outlined along her prior thyroidectomy scar in the lower portion of her neck. The skin site was injected with lidocaine with epinephrine and the neck was prepped and draped in sterile fashion. The incision was made through skin, subcutaneous tissue, and platysma. Subplatysmal skin flaps were elevated superiorly and inferiorly in each direction. I then divided the strap muscles [facility] [address] [place] [address] OPERATIVE REPORT Name: NETTIE FROST Room #: 434-P [facility] M..#: [id number] Admission: 05/06/20 Attend Phys: Kenneth Napier MD Discharge: Date of : 67 Report #: [id number] along the midline using cautery dissection. I then used the gamma probe to scan both sides of the neck. I received relatively symmetrical uptake in signal intensity from both sides of the neck, although the preoperative imaging was suspicious for left-sided parathyroid adenoma. I also used a [employer] PTeye to scan the neck with laser looking for parathyroid tissue. I only identified one normal parathyroid gland along the carotid artery on the left side. I started my exploration in the lower left neck. I elevated the strap muscles along the lower left neck and explored the pretracheal fat down to the innominate artery. I and dissected the fat along the innominate artery all the way out laterally as far as I could go. I did not identify a parathyroid adenoma. There was a vessel overlying the innominate artery that looked like a large vein, vein proved to be the brachiocephalic vein and I could palpate the patient's pacemaker within the vein. I explored as best I could around the innominate artery, but did not identify a parathyroid adenoma. I then dissected down along the trachea on the left side deeper into the neck and identified the left recurrent laryngeal nerve along the tracheoesophageal groove. I followed it superiorly all the way up to the larynx. I got good response with the nerve stimulator through the entire course of procedure and took great care to protect his nerve. I the esophagus and the trachea from the common carotid artery on the left side of the carotid sheath and explored all the way up and down the left side. I took out excessive paratracheal fat and sent it as specimen, but I never identified parathyroid adenoma. I continued to use the gamma probe to scan through the remaining course of procedure and as the procedure went on, the signal detected by the gamma probe became less and less prominent. I then turned my attention to the right neck. I explored the right neck in a similar manner. I retracted strap muscles laterally, dissected through and around the paratracheal fat. I followed the innominate artery to its development into the right common carotid artery. I followed the carotid artery up the right side. I the carotid artery from the trachea and esophagus. In the process, I identified the right recurrent laryngeal nerve. In spite of the right vocal cord paralysis, the right recurrent laryngeal nerve looked intact and there was a normal response to stimulation. Following that perhaps the recurrent laryngeal nerve was intact and functional and that the injury was elsewhere in the system, possibly even along the vagus nerve. I never identified parathyroid on the right side. There was excessive scar tissue on the right side. I did an exploration that extended beyond one and a half hour period. I felt like that I had explored as thoroughly as best as I could with special attention to the left side as indicated by the radiologic procedures, but never identified a parathyroid adenoma. Unfortunately, this was the end result. I elected to close. I placed a 10-[place] Alireza drain in the wound and brought out through stab incision where it was secured to skin with an Op-Site dressing. I [facility] [place] [address] OPERATIVE REPORT Name: NETTIE FROST TAMI Room #: 434-P [facility] M.R.#: [id number] Admission: 05/06/20 Attend Phys: Kenneth Napier MD Discharge: Date of : 67 Report #: [id number] reapproximated the strap muscles with 3-0 Vicryl and the skin with two layers of buried 4-0 Vicryl and Dermabond on the skin surface. I hooked the drain, ____ suction and applied an Op-Site dressing. The patient was then awakened in the operating room, taken to recovery room in stable condition. This represented an unsuccessful exploration of the parathyroid glands in spite of the diagnosis of primary hyperparathyroidism. In the process though, there was no injury to the recurrent laryngeal nerves, both of which were detected and found. The patient will be observed overnight and discharged home in the morning. I have called her and explained this at some length with him. Questions of course were asked about ____. I suggested that she recover from the surgery and then we will have further exploration options with the discussion in my office in the near future. By: [id number] Kenneth Napier MD /nt
[2020-05-06 10:47] VITALS: BP 111/76
[2020-05-06 11:32] LABS: CALCIUM 11.3 mg/dL (8.5-10.1); CREATININE 1.1 mg/dL (0.6-1.0); PHOSPHORUS 2.8 mg/dL (2.6-4.7)
[2020-05-06 19:30] VITALS: BP 129/90
[2020-05-06 20:00] VITALS: BP 130/85
[2020-05-06 21:00] VITALS: BP 135/87
[2020-05-07 04:18] VITALS: BP 128/89
--- NOTE | 2020-05-07 05:49 | NUR ---
ASSUMED PT CARE AT SHIFT [facility]ANGE. PT IS A&OX4. PT STATES THAT SHE IS IN PAIN AND WOULD LIKE SOME TORADOL. I CALLED IN THE ORDER. PT TOLERATES MEDICATION FINE. VSS. IV IS IN HER RIGHT HAND. PT IS ASLEEP IN HER ROOM. ANNETTE DRAIN IS EMPTIED. HOURLY ROUNDING DONE. WILL CONTINUE TO MONITOR.
[2020-05-07 08:44] VITALS: BP 91/57
--- NOTE | 2020-05-07 09:24 | NUR ---
ASSESSMENT: CM REVIEWED CHART. PT IS S/P PARATHYROID EXPLORATION. PT REPORTS LIVING IN A HOUSE WITH HER AND CHILDREN AND BEING FULLY INDEPENDENT WITH ADLS AND AMBULATION. PT REPORTS SHE HAS ABOUT 18 STEPS WITH HANDRAILS TO THE MAIN LEVEL OF HER HOME. PT REPORTS NO HH IN THE PAST OR SNF. PT DOES HAVE A CPAP AT HOME. CM DISCUSSED ROLE. PT DOES NOT ANTICIPATE HAVING ANY NEEDS FROM CM. PT WILL LIKELY DISCHARGE HOME TODAY NO NEEDS.
--- NOTE | 2020-05-07 11:10 | NUR ---
Received awake on bed. Due medications given as prescribed, able to swallow meds w/o difficulty. On room air. Vital signs stable. On MS, not on telemetry; no complains and signs of chest pain, crushing sensation and heaviness. On regular diet- tolerating well; no nausea, no vomiting and no abdominal pain noted. Continent of bowel and bladder, able to go to the toilet independently. Assisted in ADLs. With D51/2NS at 80cc/hr, infusing well at R hand; on IV antibiotics. S/P parathyroid surgery 05/06/2020- surgical wound at neck with dermabond; C/D/I, no bleeding noted; with ANNETTE drain in place- draining well, output measured and recorded accordingly- with orders to removed this AM. Pt complained of pain, due PRN pain meds given as prescribed, ANNETTE drain removed as per protocol. Dr Napier called unit this AM, physician already hang up before the staff able to answer call; paged physician thru answering service, a/w call back to verify re: discharge orders, To continue monitoring patient. Pt complained of SOA, RT paged for PRN breathing treatment.
[2020-05-07 13:10] VITALS: BP 91/57
--- NOTE | 2020-05-10 17:06 | PATH ---
[facility] [address] [place] [address] PATHOLOGY RPT PROCEDURE Name: SANTOSHKAVYATonia GARRETT Room #: 434-P [facility] Alvarez#: [id number] Admission: 05/06/20 Date of : 67 Discharge: 05/07/20 Report #: [id number] Path Case #: [id number] [facility] Accession Number: [id number] . 01 Material submitted: . parathyroid gland - PARATRACHEAL TISSUE . 02 Diagnosis: Paratracheal tissue, parathyroid exploration and dissection: - A 5 mm hypercellular parathyroid gland. - Five reactive lymph nodes. . (IUV:mml; 05/10/2020) QL 05/10/2020 1427 Local . 02 Electronically signed: . Caitlyn Gardner MD, Pathologist NPI- [id number] . 01 Gross description: . The specimen is received in formalin, labeled "Rena Jennings, paratracheal tissue". Received are multiple segments of yellow-atkinson lobulated tissue measuring 4.8 x 4.4 x 1.2 cm in aggregate dimensions. Dissection and palpation of the specimen reveals six possible lymph nodes ranging in size from 0.2 to 0.7 centimeters in maximum dimensions. The possible lymph nodes are submitted entirely in cassette A1. (CAA; 05/09/2020) QAC/QAC 05/09/2020 1228 Local . 02 Pathologist provided ICD-10: E21.3 . 02 CPT . 044877, 091267 Specimen Comment: A courtesy copy of this report has been sent to [phone] Specimen Comment: Report sent to Performed at: [address], [place] [id number] MD Jimmy Yepez MD Phone: [phone] Performed at: [address] [id number] MD Caitlyn Gardner MD Phone: [phone]
== END 2020-05-07 15:57 | disposition home or self-care (01) ==
LOC: OR 10:01 → TBA 10:10 → OR 11:05 → 4S 18:35 → OR 18:36 → 4S 05-07 15:57
PROVIDERS: Anesthesiology; ADMIT Otolaryngology Plastic Surgery within the Head & Neck; ATTEND Otolaryngology Plastic Surgery within the Head & Neck
DX: E21.0 Primary hyperparathyroidism (principal); J38.01 Paralysis of vocal cords and larynx, unilateral
CPT/HCPCS: 50010; 50101; 50386; 50417; 52220; 52225; 54118; 56524; 56526; 57006; 62110; 62900; 65130; 70005

== ENCOUNTER → 2020-05-13 | Outpatient (CLI) | payer OTHER ==
[2020-05-13 17:56] LABS: CALCIUM 11.5 mg/dL (8.5-10.1); CREATININE 1.2 mg/dL (0.6-1.0)
== END ==
LOC: LAB 15:03
PROVIDERS: ATTEND Otolaryngology Plastic Surgery within the Head & Neck
DX: E03.9 Hypothyroidism, unspecified (principal); E21.0 Primary hyperparathyroidism; E21.3 Hyperparathyroidism, unspecified

== ENCOUNTER 2020-05-17 22:33 | Emergency (ER) | payer OTHER ==
[~2020-05-17] VITALS: Ht 177.8 cm; Wt 111.1 kg
[2020-05-18 00:47] LABS: ABSOLUTE NEUTROPHILS 8.4 thou/uL (1.4-8.2); BASOPHILS 1.3 % (0.0-2.0); EOSINOPHILS 8.2 % (0.0-3.0); HEMATOCRIT 38.6 % (37.0-47.0); HEMOGLOBIN 12.4 gm/dL (12.0-15.0); LYMPHOCYTES 22.5 % (24.0-44.0); MCH 27.2 pg (26.0-34.0); MCHC 32.2 g/dL (28.0-37.0); MCV 84.3 fL (80.0-100.0); MONOCYTES 10.5 % (1.0-8.0); PLATELET COUNT 269 thou/uL (150-400); POLYS 57.5 % (36.0-66.0); RBC 4.58 mil/uL (4.20-5.00); RDW 15.2 % (10.5-14.5); WBC 14.6 thou/uL (4.0-11.0)
[2020-05-18 01:04] LABS: CALCIUM 10.5 mg/dL (8.5-10.1); CREATININE 0.9 mg/dL (0.6-1.0)
[2020-05-18 01:05] LABS: POTASSIUM 4.6 mmol/L (3.5-5.1)
[2020-05-18 01:22] LABS: PROTIME 9.3 Seconds (9.3-11.4)
[2020-05-18 02:46] VITALS: BP 136/83
--- NOTE | 2020-05-19 10:14 | EKG ---
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
== END 2020-05-18 02:49 | disposition home or self-care (01) ==
LOC: ER 22:33
PROVIDERS: Emergency Medicine
DX: E89.89 Other postprocedural endocrine and metabolic complications and disorders (principal); R60.9 Edema, unspecified; R06.00 Dyspnea, unspecified; J45.909 Unspecified asthma, uncomplicated; I10 Essential (primary) hypertension; E03.9 Hypothyroidism, unspecified; Z88.8 Allergy status to other drugs, medicaments and biological substances; Z91.040 Latex allergy status; Z91.041 Radiographic dye allergy status; Z88.1 Allergy status to other antibiotic agents; Z88.2 Allergy status to sulfonamides; Z98.890 Other specified postprocedural states

== ENCOUNTER → 2020-06-06 | Outpatient (CLI) | payer OTHER ==
[~2020-06-06] VITALS: Ht 177.8 cm; Wt 112.3 kg
[2020-06-06 13:30] VITALS: BP 113/85
--- NOTE | 2020-06-06 13:52 | NUR ---
Pain Clinic Assessment: 1. History of Osteoarthritis: KNEES LOW BACK SHOULDERS HIPS ANKLES History of Rheumatoid Arthritis: DENIES 2. Height: 5 ft. 10 in. 177.8 cm. Weight: 247.6 lb. oz. 112.311 kg. Patient's BMI: 35.5 3. Vital Signs: BP: 113/85 Pulse: 98 Resp: 22 Temp: 02 Sat: 97 ECG Mon: 4. Pain Intensity: 10 5. Fall Risk: Dizziness: N Needs help standing or walking: N Fallen in the last 3 months: N Fall risk comments: - 6. Patient on Blood Thinner: ELIIQUIS 7. History of Hypertension: Y 8. Opioid Therapy greater than 6 weeks: Y Opiate Contract Signed: 9. Risk Assessment Tool Provided: 1- LOW 10. Functional Assessment Tool: 54/ 11. Recreational Drug Use: Never Drug Type: Tobacco Use: Former Smoker Tobacco Type: Amount or Packs/day: How Many Years: Alcohol Use: No Frequency: Quant:
== END | disposition home or self-care (01) ==
LOC: PAIN 06:57
PROVIDERS: ATTEND Anesthesiology Pain Medicine
DX: M54.16 Radiculopathy, lumbar region (principal); G89.29 Other chronic pain; I10 Essential (primary) hypertension; M19.90 Unspecified osteoarthritis, unspecified site; E21.3 Hyperparathyroidism, unspecified; Z98.890 Other specified postprocedural states; Z79.899 Other long term (current) drug therapy; Z87.891 Personal history of nicotine dependence; Z79.01 Long term (current) use of anticoagulants; Z91.040 Latex allergy status; Z88.2 Allergy status to sulfonamides; Z88.8 Allergy status to other drugs, medicaments and biological substances; Z91.041 Radiographic dye allergy status

== ENCOUNTER → 2020-06-28 | Outpatient (CLI) | payer OTHER ==
[2020-06-28 10:46] LABS: ALBUMIN 3.7 g/dL (3.4-5.0); CALCIUM 10.9 mg/dL (8.5-10.1); CREATININE 1.2 mg/dL (0.6-1.0); POTASSIUM 4.1 mmol/L (3.5-5.1); TOTAL BILIRUBIN 0.3 mg/dL (0.2-1.0); TOTAL PROTEIN 6.9 g/dL (6.4-8.2)
[2020-06-28 10:53] LABS: CALCIUM 10.8 mg/dL (8.5-10.1); CREATININE 1.1 mg/dL (0.6-1.0); PHOSPHORUS 3.1 mg/dL (2.6-4.7)
== END ==
LOC: LAB 09:44
PROVIDERS: ATTEND Family Medicine
DX: E21.3 Hyperparathyroidism, unspecified (principal); F31.9 Bipolar disorder, unspecified

== ENCOUNTER → 2020-07-08 | Outpatient (CLI) | payer OTHER ==
[~2020-07-08] VITALS: Ht 177.8 cm; Wt 112.5 kg
[2020-07-08 09:17] VITALS: BP 109/79
--- NOTE | 2020-07-08 09:24 | NUR ---
Pain Clinic Assessment: 1. History of Osteoarthritis: KNEES LOW BACK SHOULDERS HIPS ANKLES History of Rheumatoid Arthritis: DENIES 2. Height: 5 ft. 10 in. 177.8 cm. Weight: 248.0 lb. oz. 112.492 kg. Patient's BMI: 35.6 3. Vital Signs: BP: 109/79 Pulse: 90 Resp: 14 Temp: 02 Sat: 99 ECG Mon: 4. Pain Intensity: 10 5. Fall Risk: Dizziness: N Needs help standing or walking: N Fallen in the last 3 months: N Fall risk comments: - 6. Patient on Blood Thinner: ELIIQUIS 7. History of Hypertension: Y 8. Opioid Therapy greater than 6 weeks: Y Opiate Contract Signed: 9. Risk Assessment Tool Provided: 1- LOW 10. Functional Assessment Tool: 54/ 11. Recreational Drug Use: Never Drug Type: Tobacco Use: Former Smoker Tobacco Type: Amount or Packs/day: How Many Years: Alcohol Use: No Frequency: Quant:
== END ==
LOC: PAIN 09:04
PROVIDERS: ATTEND Anesthesiology Pain Medicine
DX: M54.17 Radiculopathy, lumbosacral region (principal); G89.4 Chronic pain syndrome; F31.9 Bipolar disorder, unspecified; Z88.8 Allergy status to other drugs, medicaments and biological substances; Z79.899 Other long term (current) drug therapy

== ENCOUNTER → 2020-07-11 | Outpatient (CLI) | payer OTHER ==
[~2020-07-11] VITALS: Ht 177.8 cm; Wt 110.2 kg
[2020-07-11 09:38] VITALS: BP 113/77
--- NOTE | 2020-07-11 09:42 | NUR ---
Pain Clinic Assessment: 1. History of Osteoarthritis: KNEES LOW BACK SHOULDERS HIPS ANKLES History of Rheumatoid Arthritis: DENIES 2. Height: 5 ft. 10 in. 177.8 cm. Weight: 243.0 lb. oz. 110.224 kg. Patient's BMI: 34.9 3. Vital Signs: BP: 113/77 Pulse: 80 Resp: 16 Temp: 02 Sat: 98 ECG Mon: 4. Pain Intensity: 4 5. Fall Risk: Dizziness: N Needs help standing or walking: N Fallen in the last 3 months: N Fall risk comments: - 6. Patient on Blood Thinner: ELIIQUIS 7. History of Hypertension: Y 8. Opioid Therapy greater than 6 weeks: Y Opiate Contract Signed: 9. Risk Assessment Tool Provided: 1- LOW 10. Functional Assessment Tool: 54/ 11. Recreational Drug Use: Never Drug Type: Tobacco Use: Former Smoker Tobacco Type: Amount or Packs/day: How Many Years: Alcohol Use: No Frequency: Quant:
== END ==
LOC: PAIN 06:37
PROVIDERS: ATTEND Anesthesiology Pain Medicine
DX: M54.16 Radiculopathy, lumbar region (principal); M17.11 Unilateral primary osteoarthritis, right knee; Z87.891 Personal history of nicotine dependence; Z79.899 Other long term (current) drug therapy

== ENCOUNTER 2020-08-07 18:22 | Emergency (ER) | payer OTHER ==
[~2020-08-07] VITALS: Ht 177.8 cm; Wt 108.9 kg
[2020-08-07 19:04] LABS: ABSOLUTE NEUTROPHILS 6.2 thou/uL (1.4-8.2); BASOPHILS 1.2 % (0.0-2.0); EOSINOPHILS 3.6 % (0.0-3.0); HEMATOCRIT 36.6 % (37.0-47.0); HEMOGLOBIN 12.3 gm/dL (12.0-15.0); MCH 29.1 pg (26.0-34.0); MCHC 33.5 g/dL (28.0-37.0); MCV 86.9 fL (80.0-100.0); MONOCYTES 8.5 % (1.0-8.0); PLATELET COUNT 221 thou/uL (150-400); POLYS 60.7 % (36.0-66.0); RBC 4.21 mil/uL (4.20-5.00); RDW 14.7 % (10.5-14.5); WBC 10.2 thou/uL (4.0-11.0)
[2020-08-07 19:33] LABS: ANION GAP 5 mmol/L (7-16); BUN 14 mg/dL (7-18); CALCIUM 10.7 mg/dL (8.5-10.1); CHLORIDE 107 mmol/L (98-107); CO2 30 mmol/L (21-32); CREATININE 1.2 mg/dL (0.6-1.0); GLUCOSE 103 mg/dL (74-106); POTASSIUM 3.9 mmol/L (3.5-5.1); SODIUM 142 mmol/L (136-145)
[2020-08-07 19:39] LABS: ALBUMIN 3.5 g/dL (3.4-5.0); AMYLASE 56 U/L (25-115); DIRECT BILIRUBIN < 0.1 mg/dL (<0.1-0.2); LIPASE 76 U/L (73-393); MAGNESIUM 2.3 mg/dL (1.8-2.4); PHOSPHORUS 3.2 mg/dL (2.6-4.7); SGOT 13 U/L (15-37); SGPT 25 U/L (14-59); TOTAL BILIRUBIN 0.2 mg/dL (0.2-1.0); TOTAL PROTEIN 6.8 g/dL (6.4-8.2); TROPONIN-I <0.06 ng/mL (<0.06)
[2020-08-07 19:57] LABS: URINE BILIRUBIN NEGATIVE (Negative); URINE BLOOD NEGATIVE (Negative); URINE CLARITY CLEAR; URINE COLOR YELLOW; URINE GLUCOSE-RANDOM* NEGATIVE (Negative); URINE KETONES NEGATIVE (Negative); URINE LEUKOCYTES-REFLEX NEGATIVE (Negative); URINE NITRITE-REFLEX NEGATIVE (Negative); URINE PROTEIN (DIPSTICK) NEGATIVE (Negative); URINE UROBILINOGEN 0.2 E.U./dl (0.2-1.0)
[2020-08-07 20:02] VITALS: BP 136/85
--- NOTE | 2020-08-08 07:06 | EKG ---
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 Primary: TRACEY : 1965 Requested By: Jacob Monson Order Number: [id number] MD: Sandip Wooten Measurements Intervals Arthur Rate: 108 P: 37 MD: 181 QRS: -15 QRSD: 105 T: 3 QT: 311 QTc: 417 Interpretive Statements Sinus tachycardia Borderline left axis deviation Low voltage, precordial leads Abnormal R-wave progression, late transition Baseline wander in lead(s) V2 Compared to ECG 05/17/2020 22:46:07 Sinus rhythm no longer present Right ventricular hypertrophy no longer present Electronically Signed On 08-08-2020 7:06:18 CDT by Sandip Wooten [email or web address] <ELECTRONICALLY SIGNED> By: Sandip Wooten MD, FAC 08/08/20 0706 1825 24 Sandip Wooten MD, [facility] /EPI
== END 2020-08-07 20:02 | disposition home or self-care (01) ==
LOC: ER 18:22
PROVIDERS: Emergency Medicine
DX: R53.83 Other fatigue (principal); R51.9 Headache, unspecified; I10 Essential (primary) hypertension; E03.9 Hypothyroidism, unspecified; K21.9 Gastro-esophageal reflux disease without esophagitis; J45.909 Unspecified asthma, uncomplicated; Z95.0 Presence of cardiac pacemaker; Z90.89 Acquired absence of other organs; Z79.899 Other long term (current) drug therapy; Z88.2 Allergy status to sulfonamides; Z88.8 Allergy status to other drugs, medicaments and biological substances; Z91.040 Latex allergy status; Z91.041 Radiographic dye allergy status; Z20.822 Contact with and (suspected) exposure to COVID-19

== ENCOUNTER → 2020-09-02 | Outpatient (CLI) | payer OTHER ==
[2020-09-02 13:19] LABS: CALCIUM 10.6 mg/dL (8.5-10.1); PHOSPHORUS 3.4 mg/dL (2.5-4.9)
[2020-09-02 13:20] LABS: ALBUMIN 3.7 g/dL (3.4-5.0); CALCIUM 10.7 mg/dL (8.5-10.1); PHOSPHORUS 3.4 mg/dL (2.5-4.9); POTASSIUM 3.9 mmol/L (3.5-5.1); TOTAL BILIRUBIN 0.4 mg/dL (0.2-1.0); TOTAL PROTEIN 6.9 g/dL (6.4-8.2)
[2020-09-03 04:06] LABS: 25-HYDROXY TOTAL 14.5 ng/mL (30.0-100.0)
[2020-09-03 06:06] LABS: CALCIUM IONIZED* 6.5 mg/dL (4.5-5.6)
[2020-09-04 15:08] LABS: URINE CALCIUM-mg/dl 4.6 mg/dL (Not Estab.)
== END ==
LOC: LAB 12:17
PROVIDERS: ATTEND Internal Medicine Endocrinology, Diabetes & Metabolism
DX: E16.2 Hypoglycemia, unspecified (principal); E03.9 Hypothyroidism, unspecified

== ENCOUNTER → 2020-09-04 | Outpatient (CLI) | payer OTHER ==
[2020-09-04 15:08] LABS: URINE CALCIUM-mg/dl 4.6 mg/dL (Not Estab.)
== END ==
LOC: LAB 09:00
PROVIDERS: Internal Medicine Endocrinology, Diabetes & Metabolism; ATTEND Family Medicine
DX: E21.3 Hyperparathyroidism, unspecified (principal)

== ENCOUNTER → 2020-09-30 | Outpatient (CLI) | payer OTHER | LOC: NUC 07:23 | PROVIDERS: ATTEND Otolaryngology Plastic Surgery within the Head & Neck | DX: E21.0 Primary hyperparathyroidism (principal); J38.01 Paralysis of vocal cords and larynx, unilateral; K21.9 Gastro-esophageal reflux disease without esophagitis; F31.9 Bipolar disorder, unspecified; R35.1 Nocturia; E89.0 Postprocedural hypothyroidism; Z72.0 Tobacco use ==

== ENCOUNTER → 2020-10-03 | Outpatient (CLI) | payer OTHER | LOC: NUC 11:20 | PROVIDERS: ATTEND Family Medicine | DX: M47.27 Other spondylosis with radiculopathy, lumbosacral region (principal); M21.339 Wrist drop, unspecified wrist; Z78.0 Asymptomatic menopausal state ==

== ENCOUNTER → 2020-10-11 | Outpatient (CLI) | payer OTHER | LOC: RAD 13:40 | PROVIDERS: ATTEND Nurse Practitioner | DX: M25.551 Pain in right hip (principal) ==

== ENCOUNTER → 2020-11-04 | Outpatient (CLI) | payer OTHER ==
[~2020-11-04] VITALS: Ht 175.3 cm; Wt 103.9 kg
[~2020-11-04] MED LIST changes: +NEURONTIN 300M300 M2 PO; +RISPERDAL0.5 MG PO
[2020-11-04 12:40] VITALS: BP 113/75
--- NOTE | 2020-11-04 12:44 | NUR ---
Pain Clinic Assessment: 1. History of Osteoarthritis: KNEES LOW BACK SHOULDERS HIPS ANKLES History of Rheumatoid Arthritis: DENIES 2. Height: 5 ft. 9 in. 175.3 cm. Weight: 229.0 lb. oz. 103.874 kg. Patient's BMI: 33.8 3. Vital Signs: BP: 113/75 Pulse: 84 Resp: 16 Temp: 02 Sat: 97 ECG Mon: 4. Pain Intensity: 5 5. Fall Risk: Dizziness: N Needs help standing or walking: N Fallen in the last 3 months: N Fall risk comments: - 6. Patient on Blood Thinner: ELIIQUIS 7. History of Hypertension: Y 8. Opioid Therapy greater than 6 weeks: Y Opiate Contract Signed: 9. Risk Assessment Tool Provided: 1- LOW 10. Functional Assessment Tool: 11. Recreational Drug Use: Never Drug Type: Tobacco Use: Former Smoker Tobacco Type: Amount or Packs/day: How Many Years: Alcohol Use: No Frequency: Quant:
== END ==
LOC: PAIN 10-14 13:53
PROVIDERS: ATTEND Anesthesiology Pain Medicine
DX: M54.16 Radiculopathy, lumbar region (principal); G89.4 Chronic pain syndrome; I10 Essential (primary) hypertension; Z87.891 Personal history of nicotine dependence; Z91.040 Latex allergy status; Z88.2 Allergy status to sulfonamides; Z88.1 Allergy status to other antibiotic agents; Z79.891 Long term (current) use of opiate analgesic; Z79.899 Other long term (current) drug therapy

== ENCOUNTER → 2020-11-11 | Outpatient (CLI) | payer OTHER ==
--- NOTE | 2020-11-11 11:35 | NUR ---
ATTEMPTED TO START IV IN RT AND THEN LEFT AC WITHOUT SUCCESS. UNABLE TO THREAD IV TEAM CALLED AND PLACED 20G IV JUST PROXIMAL TO RT AC. SOLUMEDROL 125MG IV GIVEN BENADRYL 25MG IV GIVEN PEPCID 20 MG IV GIVEN. NS INFUSING 100ML/HR. CT NOTIFIED THAT PT IS READY FOR CT.
== END ==
LOC: CAT 09:50
PROVIDERS: ATTEND Otolaryngology Plastic Surgery within the Head & Neck
DX: E21.0 Primary hyperparathyroidism (principal); E21.4 Other specified disorders of parathyroid gland

== ENCOUNTER → 2020-11-14 | Outpatient (CLI) | payer OTHER ==
[~2020-11-14] VITALS: Ht 175.3 cm; Wt 102.8 kg
[2020-11-14 10:07] VITALS: BP 109/76
--- NOTE | 2020-11-14 10:22 | NUR ---
Pain Clinic Assessment: 1. History of Osteoarthritis: KNEES LOW BACK SHOULDERS HIPS ANKLES History of Rheumatoid Arthritis: DENIES 2. Height: 5 ft. 9 in. 175.3 cm. Weight: 226.6 lb. oz. 102.785 kg. Patient's BMI: 33.4 3. Vital Signs: BP: 109/76 Pulse: 105 Resp: 20 Temp: 02 Sat: 97 ECG Mon: 4. Pain Intensity: 4 5. Fall Risk: Dizziness: N Needs help standing or walking: N Fallen in the last 3 months: N Fall risk comments: - 6. Patient on Blood Thinner: ELIIQUIS 7. History of Hypertension: Y 8. Opioid Therapy greater than 6 weeks: Y Opiate Contract Signed: 9. Risk Assessment Tool Provided: 1- LOW 10. Functional Assessment Tool: 11. Recreational Drug Use: Never Drug Type: Tobacco Use: Former Smoker Tobacco Type: Amount or Packs/day: How Many Years: Alcohol Use: No Frequency: Quant:
== END | disposition home or self-care (01) ==
LOC: PAIN 06:57
PROVIDERS: ATTEND Anesthesiology Pain Medicine
DX: M54.16 Radiculopathy, lumbar region (principal); G89.29 Other chronic pain; I10 Essential (primary) hypertension; M19.90 Unspecified osteoarthritis, unspecified site; Z98.890 Other specified postprocedural states; Z79.899 Other long term (current) drug therapy; Z88.2 Allergy status to sulfonamides; Z91.040 Latex allergy status; Z91.041 Radiographic dye allergy status

== ENCOUNTER → 2020-11-15 | Outpatient (CLI) | payer OTHER ==
[2020-11-15 13:32] LABS: CALCIUM 11.5 mg/dL (8.5-10.1); CREATININE 1.1 mg/dL (0.6-1.0); POTASSIUM 4.5 mmol/L (3.5-5.1)
[2020-11-15 13:36] LABS: CALCIUM 11.3 mg/dL (8.5-10.1); CREATININE 1.1 mg/dL (0.6-1.0); PHOSPHORUS 3.5 mg/dL (2.5-4.9)
== END ==
LOC: LAB 12:31
PROVIDERS: ATTEND Internal Medicine Endocrinology, Diabetes & Metabolism
DX: E21.3 Hyperparathyroidism, unspecified (principal); E03.9 Hypothyroidism, unspecified

== ENCOUNTER 2021-01-06 11:25 | Observation (INO) | payer OTHER ==
[~2021-01-06] VITALS: Ht 177.8 cm; Wt 102.1 kg
[~2021-01-06 11:25] MED LIST changes: +CUBICIN500 MG IVPB; +INVANZ1 GM IV; +METHOCARBAMOL750 MG PO; +OXYCODONE-APAP1 EAC4 PO
[2021-01-06 13:52] VITALS: BP 104/84
[2021-01-06 18:19] LABS: CALCIUM 10.5 mg/dL (8.5-10.1)
[2021-01-06 18:59] LABS: CREATININE 1.2 mg/dL (0.6-1.0); POTASSIUM 3.7 mmol/L (3.5-5.1)
--- NOTE | 2021-01-06 19:00 | NUR ---
Pt. admitted to the unit from the OR accompanied by staff. She is alert and oriented. There is a ANNETTE drain to the left of her neck that is intact. She c/o pain to her neck and pain meds given (see emar) with some relief noted.
[2021-01-06 19:26] VITALS: BP 127/77
[2021-01-06 20:42] VITALS: BP 132/75
[2021-01-06 22:20] VITALS: BP 128/78
--- NOTE | 2021-01-07 04:22 | NUR ---
Pt. rested quietly at intervals during the night when checked on during frequent rounds. She c/o some nausea and zofran given (see emar) with some relief noted. She c/o pain to her neck and pain meds given (see emar) with some relief noted. Geiger catheter removed without difficulty. She as been up and ambulating around the unit.
[2021-01-07 05:15] VITALS: BP 113/64
[2021-01-07 07:40] VITALS: BP 106/65
[2021-01-07 09:46] LABS: ABSOLUTE NEUTROPHILS 9.5 thou/uL (1.4-8.2); BASOPHILS 0.4 % (0.0-2.0); EOSINOPHILS 0.3 % (0.0-3.0); HEMATOCRIT 31.4 % (37.0-47.0); HEMOGLOBIN 9.9 gm/dL (12.0-15.0); LYMPHOCYTES 10.6 % (24.0-44.0); MCH 27.1 pg (26.0-34.0); MCHC 31.5 g/dL (28.0-37.0); MONOCYTES 9.1 % (1.0-8.0); PLATELET COUNT 222 thou/uL (150-400); POLYS 79.6 % (36.0-66.0); RBC 3.65 mil/uL (4.20-5.00); RDW 13.7 % (10.5-14.5); WBC 11.9 thou/uL (4.0-11.0)
[2021-01-07 10:03] LABS: ALBUMIN 2.7 g/dL (3.4-5.0); ANION GAP 6 mmol/L (7-16); BUN 14 mg/dL (7-18); CALCIUM 9.4 mg/dL (8.5-10.1); CHLORIDE 108 mmol/L (98-107); CO2 28 mmol/L (21-32); CREATININE 1.2 mg/dL (0.6-1.0); GLUCOSE 109 mg/dL (74-106); POTASSIUM 3.9 mmol/L (3.5-5.1); SGOT 14 U/L (15-37); SGPT 25 U/L (30-65); SODIUM 142 mmol/L (136-145); TOTAL BILIRUBIN 0.1 mg/dL (0.2-1.0); TOTAL PROTEIN 5.6 g/dL (6.4-8.2)
[2021-01-07 11:09] LABS: CALCIUM 9.5 mg/dL (8.5-10.1); CREATININE 1.2 mg/dL (0.6-1.0); PHOSPHORUS 2.8 mg/dL (2.5-4.9)
[2021-01-07 11:17] VITALS: BP 103/63
[2021-01-07 13:00] VITALS: BP 103/63
[2021-01-07 13:42] VITALS: BP 103/63
--- NOTE | 2021-01-07 14:38 | NUR ---
Alert and orientated X4. Calm, cooperative and compliant. Ambulates independently with regular, steady gait. Breath sounds clear. Reg HR auscultated. Color pink with brisk capillary refill and palpable peripheral pulses. Independent with voiding. Hyperactive bowel sounds over soft, rounded abdomen. PICC line per R upper arm capped. Incision per L neck intact without s/o infection or drainage. ANNETTE drain pulled per L upper chest, minimal amt serosanguious drainage, site covered with drsg. Home health and infusion orders completed by case management. Discharged per at 1400 with belongings with daughter. No s/o distress.
--- NOTE | 2021-01-08 15:36 | D ---
[facility] [address] DISCHARGE SUMMARY Name: NETTIE FROST Room #: 464-P [facility] M.R.#: [id number] Admission: 01/06/21 Attend Phys: Kenneth Napier MD Discharge: 01/07/21 Date of : 67 Report #: [id number] THIS REPORT FOR: cc: Peter Lee MD, Neal A. MD Thompson, Robert F. MD ~ cc: Oscar Murillo MD, Peter Lee MD, ____ ____ DATE OF SERVICE: 01/07/2021 PRINCIPAL DIAGNOSES: 1. Primary hyperparathyroidism. 2. Vocal cord polyp. 3. Spinal cord seroma. HAZARDOUS WASTE MATERIAL TECHNICIAN: Oscar Murillo MD PRINCIPAL PROCEDURES: 1. Revision of parathyroidectomy. 2. Microlaryngoscopy and excision of vocal cord polyp. HOSPITAL COURSE: The patient was admitted after the above surgery. She was seen by Dr. Oscar Murillo due to her recent diagnosis of spinal cord seroma and evacuation of the seroma at outside hospital, required intravenous therapy and ongoing intravenous therapy. Her drain is to be removed in the morning following surgery and she is to be discharged. DISPOSITION: Discharged home. DISCHARGE MEDICATIONS: Tylenol and Percocet p.r.n. pain, calcium carbonate 3000 mg daily. FOLLOWUP: Labs in 3 days. Office visit in 1 week. DISCHARGE INSTRUCTIONS: Diet as tolerated. Activity limited. <ELECTRONICALLY SIGNED> By: Kenneth Napier MD 01/08/21 1536 1545 [id number] Kenneth Napier MD /nt
--- NOTE | 2021-01-08 15:36 | O ---
[facility] [place] [address] OPERATIVE REPORT Name: NETTIE FROST Room #: 464-P [facility] Linette Alvarez#: [id number] Admission: 01/06/21 Attend Phys: Kenneth Napier MD Discharge: 01/07/21 Date of : 67 Report #: [id number] THIS REPORT FOR: cc: Peter Lee MD,Kenneth Rabago MD, MD ~ cc: Peter Lee MD, Carla Bhatt, Román Boyle MD, Sachin Jain MD, Oscar Murillo MD DATE OF SERVICE: 01/06/2021 SURGEON: Kenneth Napier MD PREOPERATIVE DIAGNOSES: 1. Primary hyperparathyroidism. 2. Right vocal cord paralysis. 3. Left vocal cord polyp. POSTOPERATIVE DIAGNOSES: 1. Primary hyperparathyroidism. 2. Left superior parathyroid adenoma. 3. Right vocal cord paralysis. 4. Left vocal cord polyp. OPERATIVE PROCEDURES: 1. Reexploration left superior parathyroidectomy. 2. Microlaryngoscopy and excision, left vocal cord polyp. ANESTHESIA: General. ESTIMATED BLOOD LOSS: 25 mL. INDICATIONS FOR SURGERY: The patient is a 55-year-old female who is well known to me with a history of primary hyperparathyroidism. She has had elevated serum calcium and PTH levels. She has a remote history of total thyroidectomy, right anterior cervical diskectomy and fusion, and previous neck exploration for hyperparathyroidism. She is known to have a right vocal cord paralysis that followed her cervical spine surgery. Preoperative imaging, which included a 4-dimensional CT scan was suggestive of a left-sided parathyroid adenoma. In preparation for surgery, she had an ultrasound-guided needle localization procedure to assist with this exploration approach. In addition, in the weeks preceding surgery, she developed hoarseness that was worse than her prior hoarseness that was related to her right vocal cord paralysis. A fiberoptic laryngoscopy revealed a fairly large 4 mm polyp arising from the anterior aspect of the left vocal cord. It was smooth with a benign [facility] [address] [place] [address] OPERATIVE REPORT Name: FROSTNETTIE TAMI Room #: 464-P [facility] Linette M.R.#: [id number] Admission: 01/06/21 Attend Phys: Kenneth Napier MD Discharge: 01/07/21 Date of : 67 Report #: [id number] appearance. I recommended removal of this at the time of her scheduled surgery. DESCRIPTION OF OPERATION: The patient was placed on the operating room table in the supine position. After general endotracheal anesthesia and after intubation with a [employer] NIM (nerve integrity monitor) endotracheal tube, each recurrent laryngeal nerve was monitored at a threshold sensitivity 100 microvolts. The left recurrent laryngeal nerve was identified and preserved in the course of the procedure with the assistance of the nerve monitor and the nerve stimulator. The left vagus nerve was also identified with the assistance of the nerve monitor and the nerve stimulator. As mentioned above, the patient had a needle localization procedure by Dr. Jaspreet Mcdowell in the Radiology Department. This was done with ultrasound guidance. After the patient was intubated and under anesthesia, the neck was exposed. The tape was removed from her wire localization. The neck was then marked with a marking pen and prepped and draped in a sterile fashion. The wire was prepped as well with ChloraPrep. After the prep, I made an incision along the horizontal skin crease in a curvilinear fashion toward the left side of the neck. The site of localization of the parathyroid adenoma was at least 3 cm above her prior thyroidectomy surgical scar. I had made a preoperative plan to explore this area laterally between the strap muscles and the sternocleidomastoid muscle, dissecting down on the common carotid artery where the parathyroid adenoma appeared to be located. I thought this approach would allow better access to it and avoid the recurrent laryngeal nerve. After the prep, I made the incision through skin and subcutaneous tissue. I followed the wire down through the subcutaneous fat to the sternohyoid muscle. The wire went through the sternohyoid muscle. I then dissected between the strap muscles and the sternocleidomastoid muscle to begin to identify a plane at this point. I lifted the strap muscles away from the sternocleidomastoid muscle and at this point, I removed the wire localization as it was coming out, but it gave me good guidance to the area of my concern. As I rotated the strap muscles from lateral to medial and exposing undersurfaces of the sternothyroid muscle, I identified a fleshy soft tissue mass measuring about 1.5 cm in diameter. It had been traumatized with the insertion of the needle and had some bleeding around it. I dissected carefully around the soft tissue mass. It was adjacent to the tortuous common carotid artery. I used blunt and sharp dissection to avoid injury to the important nerve structures including the recurrent laryngeal nerve and the vagus nerve. I also had to peel this away from the common carotid artery. The soft tissue mass was excised in its entirety. In addition, I used the [employer] PTeye. It had been calibrated on the strap muscles. The laser was used to help identify this tissue as parathyroid tissue. Once I removed this what appeared to be a parathyroid adenoma, I sent it for frozen section and the pathologist confirmed that this was hypercellular [address] [place] [address] OPERATIVE REPORT Name: NETTIE FROST [id number] Admission: 01/06/21 Attend Phys: Kenneth Napier MD Discharge: 01/07/21 Date of : 67 Report #: [id number] parathyroid tissue consistent with a parathyroid adenoma, weighing 500 mg. In the process, I then used the nerve stimulator to stimulate deep to the strap muscles along the tracheoesophageal groove and I got good response from the recurrent laryngeal nerve. I also dissected along the common carotid artery and along the lateral surface of the common carotid artery and identified the vagus nerve and stimulated the vagus nerve with a nerve stimulator and got a good response from the monitor as well. I also identified normal parathyroid tissue along the common carotid artery. I used the [employer] PTeye to confirm that this was parathyroid tissue. It has a typical fatty appearance of parathyroid tissue. I did not biopsy or remove this tissue. An intraoperative PTH level was then obtained 12 minutes after resection of the parathyroid adenoma. The preoperative iPTH measured 192 pg/mL. The post-resection iPTH measured 29 pg/mL. I placed a 10-Estonian Alireza drain in the wound and brought out through a stab incision, where it was secured to the skin with an Op-Site dressing. I reapproximated the muscle with a single interrupted 3-0 Vicryl. I closed the incision with a buried layer of 4-0 Vicryl in interrupted fashion. I applied Dermabond to the skin incision. The drain was secured with an Op-Site dressing. This completed the parathyroid surgery. I then repositioned the patient for microlaryngoscopy. The endotracheal tube was withdrawn by the Anesthesia team. I then inserted a Dedo laryngoscope and exposed the larynx. I suspended the larynx with a Lewy suspension device. The vocal cords were visualized. There was a large polypoid soft tissue mass along the anterior aspect of the left vocal cord and just above it. It was polypoid and benign appearing. I took photographs of this. I intubated the patient through the laryngoscope with a 6.5 endotracheal tube and we did intermittent ventilation through this approach. I then used a microscope. I used topical epinephrine on a cottonoid to minimize bleeding. I then removed the polyp with a small micro biopsy forceps. It was sent for histopathology. I sprayed the larynx with 2% topical lidocaine. I re-photographed with a 0-degree telescope. The patient was then extubated in the operating room, taken to recovery room in stable condition. She will be observed overnight and discharged home in the morning after drain removal. She will resume her intravenous daptomycin and ertapenem, which she is currently on for a spinal cord issue. She will be discharged home. Diet will be as tolerated. Activity will be limited. She will resume use of her acetaminophen and oxycodone as needed for her spine pain. I do not anticipate the neck pain will be very significant. She will have a serum PTH and calcium [address] [address] OPERATIVE REPORT Name: NETTIE FROST TAMI Room #: 464-P [facility] Alvarez#: [id number] Admission: 01/06/21 Attend Phys: Kenneth Napier MD Discharge: 01/07/21 Date of : 67 Report #: [id number] level on the third postoperative day. She will begin calcium carbonate 3 grams daily starting the day after surgery. I will see her in 1 week in my office. <ELECTRONICALLY SIGNED> By: Kenneth Napier MD 01/08/21 1536 1539 1830 Kenneth Napier MD /nt
--- NOTE | 2021-01-08 16:06 | PATH ---
[facility] [employer] [address] PATHOLOGY RPT PROCEDURE Name: RENA FROST Room #: 464-P [facility] Alvarez#: [id number] Admission: 01/06/21 Date of : 67 Discharge: 01/07/21 Report #: [id number] Path Case #: [id number] [facility] Accession Number: [id number] . 01 Material submitted: . PART A: parathyroid gland - LEFT SUPERIOR PARATHYROID-FS. Modifiers: left, superior PART B: larynx - LEFT VOCAL CORD POLYP. Modifiers: left . 01 Clinical history: . PARATHYROIDECTOMY W IPTH HYPERPARATHYROIDISM . 02 Frozen section diagnosis: . FROZEN SECTION DIAGNOSIS (Dr. Caitlyn Gardner) . FSA1. Left superior parathyroid, excision: - Markedly hypercellular parathyroid, 0.5 grams and 1.0 cm in greatest dimension. . These findings are discussed with Dr. Kenneth Napier in OR-1 at [facility] and a written report is placed in the patient's chart. . . FROZEN SECTION GROSS DESCRIPTION Specimen is received fresh from the OR labeled with the patient's name, and "left superior parathyroid", consists of a 0.5 gram oval red-atkinson fragment of tissue measuring approximately 1 x 0.9 x 0.8 cm. There is adherent fragments of soft tissue present. Specimen is inked on the capsule and submitted in toto for frozen section as FSA1, this is subsequently submitted for permanent sections as A1. (IUV:service vehicle operator; 01/06/2021) . Frozen section performed at [facility], [address] [place] [address]. IZV/MBR . 02 Diagnosis: A. Parathyroid, left superior parathyroid, parathyroidectomy: - Markedly hypercellular parathyroid tissue, compatible with parathyroid adenoma, 0.5 grams - Negative for malignancy. . B. Vocal cord, left vocal cord polyp, biopsy: - Vocal cord polyp with hyperkeratosis and mild squamous dysplasia (low-grade dysplasia). [facility] [address] [place] [address] PATHOLOGY RPT PROCEDURE Name: FILIBERTO FROSTORATonia GARRETT Room #: 464-P [facility] Alvarez#: [id number] Admission: 01/06/21 Date of : 67 Discharge: 01/07/21 Report #: [id number] Path Case #: [id number] - Negative for high-grade dysplasia. - Mild acute inflammation present within the background. (IUV:pit; 01/08/2021) QTP 01/08/2021 1102 Local . 02 Comment: B. Revenue Cycle Specialist focus with the mild squamous dysplasia was co-reviewed by Dr. Trixie Ellison who concurs with the diagnosis rendered. (IUV:pit; 01/08/2021) . 02 Electronically signed: . Caitlyn Gardner MD, Pathologist NPI- [id number] . 01 Gross description: . A. PLEASE SEE GROSS DESCRIPTION UNDER FROZEN SECTION DIAGNOSIS. . B. The specimen is received in formalin, labeled "Rena Frost, left vocal cord polyp". Received are two segments of light atkinson tissue measuring 0.3 and 0.4 cm in maximum dimensions. The specimen is submitted entirely in cassette B1. (CAA; 01/07/2021) QA/MBR 01/07/2021 1526 Local . 02 Pathologist provided ICD-10: E21.3, J38.1, J38.3 . 02 CPT . 013090, 374226, 122590 Specimen Comment: A courtesy copy of this report has been sent to [phone], [phone] Specimen Comment: [id number] Specimen Comment: Report sent to / DR HAZEL Performed at: [address], [place] [id number] MD Jimmy Yepez MD Phone: [phone] Performed at: [address] [id number] MD Caitlyn Gardner MD Phone: [phone]
== END 2021-01-07 14:37 | disposition home or self-care (01) ==
LOC: OR 11:25 → TBA 14:23 → OR 14:40 → 4W 18:05 → OR 18:06 → 4W 01-07 14:37
PROVIDERS: Specialist; ADMIT Otolaryngology Plastic Surgery within the Head & Neck; ATTEND Otolaryngology Plastic Surgery within the Head & Neck
DX: E21.0 Primary hyperparathyroidism (principal); J38.1 Polyp of vocal cord and larynx; T14.8XXA Other injury of unspecified body region, initial encounter; Z20.822 Contact with and (suspected) exposure to COVID-19; F31.9 Bipolar disorder, unspecified; E03.9 Hypothyroidism, unspecified; G47.33 Obstructive sleep apnea (adult) (pediatric); I10 Essential (primary) hypertension; F41.9 Anxiety disorder, unspecified; Z79.899 Other long term (current) drug therapy; Z87.891 Personal history of nicotine dependence
CPT/HCPCS: 10047; 50010; 50101; 50386; 50403; 52190; 52220; 54118; 56524; 56526; 57006; 58902; 62110; 62900; 65020; 65130; 65133; 70005

== ENCOUNTER → 2021-02-14 | Outpatient (CLI) | payer OTHER | LOC: MRI 02-13 09:59 | PROVIDERS: ATTEND Neurological Surgery | DX: M43.27 Fusion of spine, lumbosacral region (principal); M54.16 Radiculopathy, lumbar region; T81.49XD Infection following a procedure, other surgical site, subsequent encounter ==

== ENCOUNTER → 2021-03-07 | Outpatient (CLI) | payer OTHER ==
[~2021-03-07] VITALS: Ht 177.8 cm; Wt 102.8 kg
[~2021-03-07] MED LIST changes: +ASA81BEC PO; +LYRICA 50 MG50 MG PO; +PREGABALIN25 MG PO
[2021-03-07 10:42] VITALS: BP 100/66
[2021-03-07 10:49] LABS: HEMATOCRIT 35.7 % (37.0-47.0); HEMOGLOBIN 11.5 gm/dL (12.0-15.0); MCH 27.2 pg (26.0-34.0); MCHC 32.1 g/dL (28.0-37.0); MCV 84.9 fL (80.0-100.0); RBC 4.21 mil/uL (4.20-5.00); RDW 14.9 % (10.5-14.5); WBC 8.7 thou/uL (4.0-11.0)
[2021-03-07 10:59] LABS: APTT 21.9 Seconds (24.5-32.8); INR 0.93; PROTIME 10.2 Seconds (10.5-12.1)
== END | disposition home or self-care (01) ==
LOC: SPEC 09:42
PROVIDERS: Radiology Diagnostic Radiology; ATTEND Specialist
DX: L02.212 Cutaneous abscess of back [any part, except buttock and flank] (principal); M54.59 Other low back pain; I10 Essential (primary) hypertension; J45.909 Unspecified asthma, uncomplicated; E03.9 Hypothyroidism, unspecified; E21.3 Hyperparathyroidism, unspecified; F41.9 Anxiety disorder, unspecified; F31.9 Bipolar disorder, unspecified; E78.5 Hyperlipidemia, unspecified; E66.9 Obesity, unspecified; K21.9 Gastro-esophageal reflux disease without esophagitis; Z98.890 Other specified postprocedural states; Z79.899 Other long term (current) drug therapy; Z96.652 Presence of left artificial knee joint; Z82.49 Family history of ischemic heart disease and other diseases of the circulatory system; Z95.0 Presence of cardiac pacemaker; Z91.040 Latex allergy status; Z87.891 Personal history of nicotine dependence

== ENCOUNTER → 2021-04-14 | Outpatient (CLI) | payer OTHER ==
[~2021-04-14] VITALS: Ht 175.3 cm; Wt 106.0 kg
[~2021-04-14] MED LIST changes: -LYRICA 50 MG50 MG PO
[2021-04-14 14:18] VITALS: BP 116/78
--- NOTE | 2021-04-14 14:29 | NUR ---
Pain Clinic Assessment: 1. History of Osteoarthritis: KNEES LOW BACK SHOULDERS HIPS ANKLES History of Rheumatoid Arthritis: DENIES 2. Height: 5 ft. 9 in. 175.3 cm. Weight: 233.6 lb. oz. 105.960 kg. Patient's BMI: 34.5 3. Vital Signs: BP: 116/78 Pulse: 78 Resp: 16 Temp: 02 Sat: 100 ECG Mon: 4. Pain Intensity: 6 5. Fall Risk: Dizziness: N Needs help standing or walking: N Fallen in the last 3 months: N Fall risk comments: - 6. Patient on Blood Thinner: None 7. History of Hypertension: Y 8. Opioid Therapy greater than 6 weeks: Y Opiate Contract Signed: 9. Risk Assessment Tool Provided: 1- LOW 10. Functional Assessment Tool: 54/ 11. Recreational Drug Use: Never Drug Type: Tobacco Use: Former Smoker Tobacco Type: Amount or Packs/day: How Many Years: Alcohol Use: No Frequency: Quant:
== END ==
LOC: PAIN 10:44
PROVIDERS: ATTEND Anesthesiology Pain Medicine
DX: M54.16 Radiculopathy, lumbar region (principal); M54.17 Radiculopathy, lumbosacral region; G89.29 Other chronic pain; F34.89 Other specified persistent mood disorders; Z88.8 Allergy status to other drugs, medicaments and biological substances; Z79.82 Long term (current) use of aspirin; Z79.899 Other long term (current) drug therapy

== ENCOUNTER → 2021-04-24 | Outpatient (CLI) | payer OTHER ==
[~2021-04-24] VITALS: Ht 175.3 cm; Wt 107.3 kg
[~2021-04-24] MED LIST changes: +LYRICA 50 MG50 MG PO
[2021-04-24 09:40] VITALS: BP 112/71
--- NOTE | 2021-04-24 10:01 | NUR ---
Pain Clinic Assessment: 1. History of Osteoarthritis: KNEES LOW BACK SHOULDERS HIPS ANKLES History of Rheumatoid Arthritis: DENIES 2. Height: 5 ft. 9 in. 175.3 cm. Weight: 236.6 lb. oz. 107.321 kg. Patient's BMI: 34.9 3. Vital Signs: BP: 112/71 Pulse: 81 Resp: 22 Temp: 02 Sat: 97 ECG Mon: 4. Pain Intensity: 10 (0 LYING DOWN) 5. Fall Risk: Dizziness: N Needs help standing or walking: Y Fallen in the last 3 months: N Fall risk comments: - 6. Patient on Blood Thinner: None 7. History of Hypertension: Y 8. Opioid Therapy greater than 6 weeks: Y Opiate Contract Signed: 9. Risk Assessment Tool Provided: 1- LOW 10. Functional Assessment Tool: 11. Recreational Drug Use: Never Drug Type: Tobacco Use: Former Smoker Tobacco Type: Amount or Packs/day: How Many Years: Alcohol Use: No Frequency: Quant:
== END | disposition home or self-care (01) ==
LOC: PAIN 06:50
PROVIDERS: ATTEND Anesthesiology Pain Medicine
DX: M54.16 Radiculopathy, lumbar region (principal); G89.29 Other chronic pain; M96.1 Postlaminectomy syndrome, not elsewhere classified; M19.90 Unspecified osteoarthritis, unspecified site; E21.3 Hyperparathyroidism, unspecified; Z98.890 Other specified postprocedural states; Z79.899 Other long term (current) drug therapy; Z87.891 Personal history of nicotine dependence; Z88.2 Allergy status to sulfonamides; Z88.8 Allergy status to other drugs, medicaments and biological substances; Z91.041 Radiographic dye allergy status; Z91.040 Latex allergy status

== ENCOUNTER → 2021-05-16 | Outpatient (CLI) | payer OTHER ==
[2021-05-16 11:23] LABS: ABSOLUTE NEUTROPHILS 6.3 thou/uL (1.4-8.2); EOSINOPHILS 5.7 % (0.0-3.0); HEMATOCRIT 35.2 % (37.0-47.0); HEMOGLOBIN 11.1 gm/dL (12.0-15.0); LYMPHOCYTES 20.8 % (24.0-44.0); MCH 27.5 pg (26.0-34.0); MCHC 31.4 g/dL (28.0-37.0); MCV 87.4 fL (80.0-100.0); MONOCYTES 7.9 % (1.0-8.0); PLATELET COUNT 362 thou/uL (150-400); POLYS 64.6 % (36.0-66.0); RBC 4.02 mil/uL (4.20-5.00); RDW 14.8 % (10.5-14.5); WBC 9.7 thou/uL (4.0-11.0)
[2021-05-16 11:41] LABS: ALBUMIN 3.1 g/dL (3.4-5.0); ANION GAP 4 mmol/L (7-16); BUN 18 mg/dL (7-18); CALCIUM 9.3 mg/dL (8.5-10.1); CHLORIDE 104 mmol/L (98-107); CHOLESTEROL 187 mg/dL (<200); CO2 32 mmol/L (21-32); GLUCOSE 97 mg/dL (74-106); HDL CHOLESTEROL 45 mg/dL (>40); LDL CHOLESTEROL 117 mg/dL (<100); POTASSIUM 4.1 mmol/L (3.5-5.1); SGOT 21 U/L (15-37); SGPT 25 U/L (30-65); SODIUM 140 mmol/L (136-145); TC:HDL 4.2 Ratio (Not establshd); TOTAL BILIRUBIN 0.2 mg/dL (0.2-1.0); TOTAL PROTEIN 6.6 g/dL (6.4-8.2); TRIGLYCERIDE 127 mg/dL (<150); VLDL 25 mg/dL (<40)
== END ==
LOC: RAD 09:32
PROVIDERS: ATTEND Neurological Surgery
DX: M43.26 Fusion of spine, lumbar region (principal); M17.12 Unilateral primary osteoarthritis, left knee; M47.22 Other spondylosis with radiculopathy, cervical region; E03.9 Hypothyroidism, unspecified; E83.52 Hypercalcemia; M41.86 Other forms of scoliosis, lumbar region